=== PATIENT | male | born 1935 | race Caucasian/White ===

== ENCOUNTER 2024-12-16 12:13 | Emergency (ER) | payer MEDICARE, OTHER, SELFPAY ==
--- NOTE | ~2024-12-16 | CT_ITS ---
EXAMINATION: CT brain wo cathy, 12/16/2024 12:46 CDT HISTORY: syncope COMPARISON: No comparisons available. Technique: Axial images obtained of the brain without contrast. One or more of the following dose reduction techniques were used: automated exposure control, adjustment of the mA and/or kV according to patient size, use of iterative reconstruction technique. Findings: No acute infarct or parenchymal hemorrhage. No abnormal mass or mass effect. No midline shift. No extra-axial fluid collections. No hydrocephalus. Mastoid air cells unremarkable. Sinuses and orbits unremarkable. No acute fracture. No significant facial or scalp soft tissue swelling evident. No radiopaque foreign body is seen. Impression: 1.No acute intracranial abnormality. Reviewed, dictated and finalized at location A. Impression: 1.No acute intracranial abnormality.
--- NOTE | ~2024-12-16 | XR_ITS ---
Examination: XR chest 2V Clinical History: syncope Comparison: None Technique: PA and Lateral Findings: Cardiomediastinal silhouette normal size and configuration. Lungs clear. No acute bony abnormality. Osteopenia. IMPRESSION: 1. No acute cardiopulmonary findings. Reviewed, dictated and finalized at location R.
[2024-12-16 12:17] VITALS: TEMP 36.3
--- NOTE | 2024-12-16 12:23 | ECG_ITS ---
Test Date: 2024-12-16 12:32:39 Measurements Intervals [place] Rate: 50 P: 67 NE: 199 QRS: 34 QRSD: 91 T: 69 QT: 466 QTc: 426 Interpretive Statements SINUS BRADYCARDIA OTHERWISE NORMAL ECG No previous ECG available for comparison Electronically Signed On 12-17-2024 15:44:51 CDT by Ben Noel M.D.
[2024-12-16 12:44] LABS: Hematocrit 34.8 % (42.0-52.0); Hemoglobin 11.2 g/dL (14.0-18.0); Immature Granulocyte Percent A 0.6 % (0-0.5); Lymphocytes Absolute Auto 1.87 K/mm3 (0.9-3.2); Mean Corpuscular HGB Conc 32.2 g/dl (32-36); Mean Corpuscular Hemoglobin 31.5 pg (26-34); Mean Corpuscular Volume 97.8 fl (80-100); Nucleated Red Blood Cells Absolute Auto 0.000 K/mm3 (0.0-0.012); Nucleated Red Blood Cells Perc 0.0 % (0.0-0.2); Platelet Count Result 288 k/mm3 (150-375); Red Blood Count 3.56 M/mm3 (4.6-6.20); White Blood Count 7.0 K/mm3 (4.5-10.0)
[2024-12-16 13:07] LABS: Alanine Aminotransferase 19 U/L (6-50); Albumin Level 4.0 g/dL (3.5-5.1); Alkaline Phosphatase 100 U/L (38-126); Anion Gap 11 mmol/L (4-12); Aspartate Amino Transferase 28 U/L (17-59); Bilirubin,Total 1.1 mg/dL (0.2-1.3); Blood Urea Nitrogen 23 mg/dL (9-20); Calcium 9.4 mg/dL (8.4-10.2); Carbon Dioxide 22 mmol/L (22-30); Chloride 101 mmol/L (98-107); Estimated CRCL calculation 34 ml/min; Estimated Glomerular Filt Rate 49; Glucose 154 mg/dL (65-110); Potassium 4.5 mmol/L (3.4-5.0); Sodium 134 mmol/L (137-145); Total Protein 6.8 g/dL (6.3-8.2)
[2024-12-16 13:15] VITALS: BP 135/57
--- NOTE | 2024-12-16 13:15 | ED.SYNCOPE ---
HPI - Syncope General Chief Complaint: Syncope Stated Complaint: syncope Time Seen by Provider: 12/16/24 12:31 History of Present Illness HPI narrative: This is an 89-year-old male with history of CAD status post CABG, prostate cancer status post radiation many years ago who presents to the ED for syncope. Patient states that he had a bowel movement earlier today and was straining and in the straining he had a syncopal episode causing him to fall to the left side of the toilet and hit his head on the tile. He is unsure of how long he was out. Denies any other preceding symptoms. Denies any chest pain, shortness breath, abdominal pain, nausea, vomiting. Related Data Allergies Allergy/AdvReac Type Severity Reaction Status Date / Time No Known Allergies Allergy Verified 12/16/24 13:18 Review of Systems Review of Systems: Gen.: Denies fevers or chills Eyes: Denies eye pain or visual change ENT: Denies congestion Respiratory: Denies shortness of breath or cough CV: Denies chest pain or palpitations GI: Denies abdominal pain nausea, emesis or diarrhea denies burning, urgency, frequency or hematuria Musculoskeletal: Denies back pain or muscle pain Neuro: Denies numbness, tingling, weakness or focal weakness Skin: Denies rash Except as documented, all other systems reviewed and negative Exam Narrative: APPEARANCE: No acute distress, nontoxic, resting in bed EYES: EOMI HEENT: Normocephalic, atraumatic, OMM RESPIRATORY: No respiratory distress Clear to auscultation bilaterally with no rhonchi wheezing or rales. CARDIOVASCULAR: Regular rate and rhythm without murmurs rubs or gallops. ABDOMINAL: Soft, nontender, nondistended, no rebound or guarding MUSCULOSKELETAl: Moves all extremities. No clubbing, cyanosis or edema. NEURO: Awake and alert. Following commands, speech normal, no focal deficits. NIHSS 0 SKIN:: Warm, dry. No rashes lesions or abrasions PSYCHIATRIC: Normal affect/mood, Course Vital Signs Vital signs: Vital Signs Temperature 97.4 F L 12/16/24 12:17 Temperature 97.4 F L 12/16/24 12:17 Pulse Rate 75 12/16/24 13:20 Blood Pressure 110/59 L 12/16/24 13:20 MDM - Syncope MDM Narrative Medical decision making narrative: 89-year-old male who presented to the ED for syncopal episode. On initial evaluation, patient was in no acute distress, afebrile, hemodynamically stable. He had a nonfocal neuro exam. Heart and lungs clear. Abdomen soft and nontender. NIHSS is 0. History is most consistent with a vasovagal syncope in the setting of straining bowel movement. CT head showed no acute process. Labs are without significant abnormalities. EKG without concerning findings. Patient was able to ambulate through the department without any significant assistance. Patient will be given prescriptions for bowel regimen. He is advised follow-up with PCP in the next couple days for re-evaluation. Patient and family are agreeable to this plan. Given strict return precautions. Differential Diagnosis Differential diagnosis: Likely vasovagal syncope, complete atrioventricular block and dehydration Medical Records Attestation: I reviewed the patient's medical records. Lab Data Attestation: I reviewed the patient's lab results. 12/16/24 12:38 12/16/24 12:38 Labs: Lab Results 12/16/24 12/16/24 Range/Units 12:37 12:38 WBC 7.0 (4.5-10.0) K/mm3 RBC 3.56 L (4.6-6.20) M/mm3 Hgb 11.2 L (14.0-18.0) g/dL Hct 34.8 L (42.0-52.0) % MCV 97.8 (80-100) fl MCH 31.5 (26-34) pg MCHC 32.2 (32-36) g/dl RDW 12.7 (11.5-14.5) % Plt Count 288 (150-375) k/mm3 MPV 9.9 (7.4-10.4) fl Immature Gran % (Auto) 0.6 H (0-0.5) % Neut % (Auto) 62.4 (45.5-73.1) % Lymph % (Auto) 26.7 (18.3-44.2) % [place] % (Auto) 8.7 H (2.6-8.5) % Eos % (Auto) 1.0 (0-4.4) % Baso % (Auto) 0.6 (0.2-1.2) % Lymph # (Auto) 1.87 (0.9-3.2) K/mm3 [place] # (Auto) 0.6 (0.1-0.6) K/mm3 Eos # (Auto) 0.1 (0-0.3) K/mm3 Baso # (Auto) 0.0 (0.0-0.1) K/mm3 Abs Immat Gran (auto) 0.04 H (0.00-0.031) K/mm3 Absolute Neuts (auto) 4.4 (1.3-6.7) K/mm3 Absolute Nucleated RBC 0.000 (0.0-0.012) K/mm3 Nucleated RBC % 0.0 (0.0-0.2) % Sodium 134 L (137-145) mmol/L Potassium 4.5 (3.4-5.0) mmol/L Chloride 101 (98-107) mmol/L Carbon Dioxide 22 (22-30) mmol/L Anion Gap 11 (4-12) mmol/L BUN 23 H (9-20) mg/dL Creatinine 1.38 H (0.7-1.3) mg/dL Estim Creat Clear Calc 34 ml/min Estimated GFR 49 L (59 - ) Glucose 154 H (65-110) mg/dL POC Capillary Glucose 133 H (65-105) mg/dl Calcium 9.4 (8.4-10.2) mg/dL Total Bilirubin 1.1 (0.2-1.3) mg/dL AST 28 (17-59) U/L ALT 19 (6-50) U/L Alkaline Phosphatase 100 (38-126) U/L Total Protein 6.8 (6.3-8.2) g/dL Albumin 4.0 (3.5-5.1) g/dL Imaging Data Radiologist's impression: Impressions Head CT 12/16/24 13:18 Impression: 1.No acute intracranial abnormality. Chest X-Ray 12/16/24 13:19 IMPRESSION: 1. No acute cardiopulmonary findings. ECG Data EKG #1: Attestation: I personally reviewed and interpreted this ECG as follows: ECG completion date: 12/16/24 ECG completion time: 12:32 Interpretation: Sinus bradycardia rate of 50, normal axis, normal intervals, no acute ST or T-wave changes Discharge Plan Discharge Clinical Impression: Vasovagal syncope Patient Disposition: Home Condition: Stable Instructions: Antibiotic Form, Syncope (ED) Additional Instructions: Take a bowel regimen as prescribed. Follow-up with the PCP in the next few days for re-evaluation. Return to the ED for any new or worsening symptoms. Patient Language: Croatian Prescriptions: New bisacodyl [Dulcolax (bisacodyl)] 10 mg suppository 10 mg RECTAL DAILY PRN (Reason: constipation) Qty: 12 0RF sennosides-docusate sodium [Docuzen] 8.6-50 mg tablet 1 tab-cap PO HS Qty: 30 0RF polyethylene glycol 3350 [Miralax] 17 gram/dose powder 17 g PO DAILY Qty: 119 0RF Follow-up/Referrals: UNKNOWN,DOCTOR [Primary Care Provider]
[2024-12-16 13:17] VITALS: BP 131/60; PULSE 52
[2024-12-16 13:20] VITALS: BP 110/59; PULSE 75
--- OUTSIDE RECORDS SUMMARY | 2024-12-16 13:43 | XMS_ITS | Clinical Summary ---
Author Organization [facility] Address [address] [place] [address] Care Team Providers Care Logistics Manager Name Role Phone Kary Joiner MD Primary Care Provider + [phone] Rusty Saucedo OD Unavailable [phone] Nehemias Capellan MD Unavailable [phone] Sergio Lara MD Unavailable Didi Woo MD Unavailable [phone] Mk Moore DO Unavailable [phone] Kelsey Sun NP Unavailable Ambrocio Bledsoe MD Unavailable Hola Davenport MD Unavailable [phone] Roger Sibley Unavailable + [phone] Allergies No known active allergies Medications multivitamin capsuleIndications :Vitamin Deficiency Prevention Take 1 capsule by mouth every morning Active omega 1-wjt-cna-fish oil 1,000 mg (120 mg-180 mg) capsuleIndications :hypertriglyceride danielle Take 1 capsule (1,000 mg total) by mouth every morning Active B-COMPLEX WITH VITAMIN C ORALIndications:oropeza pplement Take 1 tablet by mouth every morning 12/15/19 20 Active calcium carbonate-vitamin D3 (CALTRATE 600 + D) 1500 mg (600 mg elemental) -400 units per tablet 10/08/19 21 Active vit C,C-Ep-arric-lutei n-zeaxan (PreserVision AREDS-2) 250-90-40-1 mg capsule 12/31/19 22 Active nitroglycerin (NITROSTAT) 0.[address] 1 tablet (0.4 mg total) under the tongue every 5 (five) minutes as needed for chest pain upt to 3x call 911 if pain persists 100 tablet 05/09/19 23 Active clopidogreL (PLAVIX) 75 mg tablet TAKE 1 TABLET DAILY 90 tablet 3 03/31/20 24 Active Synthroid 100 mcg tabletIndications: Acquired hypothyroidism TAKE 1 TABLET DAILY 90 tablet 3 10/21/19 25 Active citalopram (CeleXA) 20 mg tablet TAKE 1 TABLET DAILY 90 tablet 3 11/25/19 25 Active ramipriL (ALTACE) 5 mg capsule TAKE 1 CAPSULE DAILY 90 capsule 3 12/09/19 25 Active atorvastatin (LIPITOR) 20 mg tablet TAKE 1 TABLET DAILY 90 tablet 3 12/09/19 25 Active citalopram (CeleXA) 20 mg tablet TAKE 1 TABLET DAILY 90 tablet 3 11/29/19 24 025 Discontinued atorvastatin (LIPITOR) 20 mg tablet TAKE 1 TABLET DAILY 90 tablet 3 12/13/19 24 025 Discontinued ramipriL (ALTACE) 5 mg capsule TAKE 1 CAPSULE DAILY 90 capsule 3 12/13/19 24 025 Discontinued Active Problems Problem Noted Date Diagnosed Date Balance problem 03/21/2023 Assessment & Plan (03/21/2023 10:32 AM VENETIAN BLIND ASSEMBLER): New and worsening MRI brain recommended rule out cerebellar disease Memory changes 03/21/2023 Assessment & Plan (03/21/2023 10:34 AM VENETIAN BLIND ASSEMBLER): New Forgetting names but recovers Balance issues Rule out NPH Pain of toe of right foot 11/28/2022 Assessment & Plan (11/28/2022 2:24 PM CDT): Right plantar aspect of right great toe with erythema, edema, tednerness on palpation, right plantar aspect of right 1st MTA with significant erythema, edema, ttp light palpation, Decreased and painful ROM right great toe, Right great toe with generalized edema Possible gout vs inflammatory arthritis vs cannot r/o infectious process Unable to order labs at CC site. Recommend further work up : Uric acid, CRP, ESR, CMP. Discussed he should reach out to PCP's office and request this Ordered x-ray right foot Prednisone 30 mg taper Tylenol as needed for pain Keflex 500 mg BID x 7 days ER for worsening symptoms, fever PCP for persisting symptoms De Quervain's tenosynovitis, right 03/23/2022 Assessment & Plan (03/23/2022 3:42 PM VENETIAN BLIND ASSEMBLER): +Gaston test Use tylenol/ibuprofen as needed as directed on package for pain Follow up with PCP for further treatment, may eventually need steroid injections Xray to r/o fracture due to fall on outstretched hand 2 months ago and pt wants xray Encounter for follow-up surveillance of prostate cancer 03/10/2022 Supraspinatus tendon tear 01/23/2022 Labral tear of long head of right biceps tendon 01/23/2022 Partial tear of subscapulari s tendon, left, initial encounter 01/23/2022 H/O arteriovenous malformation (AVM) 01/16/2022 Overview (01/16/2022): Added automatically from request for surgery [id number] 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 Assessment & Plan (03/21/2023 7:54 AM VENETIAN BLIND ASSEMBLER): Flexible sigmoidoscopy December of 2021 Dr. Didi Woo, diagnosed with rectal angiodysplasia Monitor for blood in stools. Report if significant amounts of blood noted in stools. Monitor CBC and iron panel. 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 08/10/2021 Assessment & Plan (10/16/2024 5:16 PM CDT): Symptoms c/w with Left hand 1-3 fingers C6-7 distribution Annoying but living with it Using support pillows Make adjustments as needed Call if sx worsen for imaging and PT Has not yet had a C-spine x-ray Assessment & Plan (08/10/2021 9:43 AM CDT): C spine xray Avoid sleeping on the R side to avoid irritation of the nerve root Neck exercises May need MRI and PT Prostate cancer 01/13/2021 Cancer Staging:Clinical:Stage IIC(cT2a, cN0, cM0, PSA: 9.6, Grade Group: 4) - Signed by Norm Capps MD on 01/13/2021 Overview (10/16/2024): Non surgical treatment, had history of radiation therapy and ADT injections every six months Dr Jen Lara urologist (was) Dr Jefry Ríos Onc Clinical: Stage IIC (cT2a, cN0, cM0, PSA: 9.6, Grade Group: 4) - Signed by Norm Capps MD on 01/13/2021 Assessment & Plan (09/24/2023 9:56 AM CDT): Now in remission, completed the RTx and now on maintenance ADT injections q 6 mos Being monitored q 6 mos for 3 yrs Cont under on Rad Oncology Assessment & Plan (08/14/2022 11:12 AM CDT): Now in remission, completed the RTx and ADT Being monitored q 3 mos for 2 yrs, then q 6 mos for 3 yrs Cont under urology Abnormal MRI, pelvis 12/14/2020 Overview (12/14/2020): Added automatically from request for surgery [id number] History of basal cell carcinoma (BCC) of skin Overview (11/11/2020): Face Dr Hernandez Assessment & Plan (11/11/2020 6:47 PM CDT): Currently undergoing treatment to face Cont under Dr Hernandez Sunscreen, hat, long sleeve shirts, discussed Family history of prostate cancer in father 07/2020 Overview (11/10/2020): Father and brother Assessment & Plan (11/10/2020 3:24 PM CDT): At risk for Prostate cancer PSA screening Localized swelling on right hand 03/25/2020 Assessment & Plan (03/25/2020 10:54 AM VENETIAN BLIND ASSEMBLER): We will check a vein suplex of the RUE to rule out clot Arterial flow is good If not a DVT then possible superficial or other investigation needed such as CT chest/shoulder with potential lymphadenopathy being the cause of this swelling Medicare annual wellness visit, subsequent 10/22 Assessment & Plan (03/26/2024 10:27 AM VENETIAN BLIND ASSEMBLER): Reviewed previous labs and diagnostic test results. Chronic medical problems evaluated and management plans discussed with the patient. Prescription medications, supplements, vitamins and immunizations reviewed. Wear seatbelts. Use sunscreen. Discussed healthy diet and disease prevention. Recommend moving towards a plant based diet. Discussed importance of scheduling recommended screening tests. Discussed importance of regular physical examinations for health maintenance. Assessment & Plan (02/08/2022 10:52 AM CDT): Reviewed previous labs and diagnostic test results. Chronic medical problems evaluated and management plans discussed with the patient. Prescription medications, supplements, vitamins and immunizations reviewed. Wear seatbelts. Use sunscreen. Discussed healthy diet and disease prevention. Recommend moving towards a plant based diet. Discussed importance of scheduling recommended screening tests. Discussed importance of regular physical examinations for health maintenance. Discussed importance of a living will, advanced directives and establishing or updating healthcare power of real estate attorney document and providing our office with a copy. Assessment & Plan (11/10/2020 3:17 PM CDT): Reviewed previous labs and diagnostic test results. Chronic medical problems evaluated and management plans discussed with the patient. Prescription medications, supplements, vitamins and immunizations reviewed. Wear seatbelts. Use sunscreen. Discussed healthy diet and disease prevention. Recommend moving towards a plant based diet. Discussed importance of scheduling recommended screening tests. Discussed importance of regular physical examinations for health maintenance. Discussed importance of a living will, advanced directives and establishing or updating healthcare power of real estate attorney document and providing our office with a copy. Assessment & Plan (10/23/2019 8:52 AM CDT): Here for wellness exam Patient has procedure coming up for eyes with [employer] This is low risk procedure in a low risk patient for cardiac event to occur and the benefits outweigh the risk and patient is recommended to move forward with the procedure Coronary artery disease invo lving [place] coronary artery of [place] heart 10/27/2018 Overview (11/10/2020): Open heart [place] [address] Pearl Assessment & Plan (11/10/2020 3:33 PM CDT): Stable Cont on plavix and statin therapy Risk for falls 07/23/2018 Overview (02/08/2022): 11/2021 Fell coming out of a pizza parlor, large step down at the exit, strained r wrist and scraped r knee, no major ijuries Assessment & Plan (03/26/2024 10:26 AM VENETIAN BLIND ASSEMBLER): Patient at risk for falls due to age and co morbidities. Fall prevention discussed c patient in detail. Exercises for balance and coordination, keep LE muslces toned and strong. Assessment & Plan (02/08/2022 10:53 AM CDT): Patient at risk for falls due to age and co morbidities. Fall prevention discussed c patient in detail. Exercises for balance and coordination, keep LE muslces toned and strong. Assessment & Plan (11/10/2020 3:27 PM CDT): Lives in a single level home now. Patient at risk for falls due to age and co morbidities. Fall prevention discussed c patient in detail. Exercises for balance and coordination, keep LE muslces toned and strong. Assessment & Plan (07/23/2018 3:55 PM CDT): Patient at risk for falls due to age and co morbidities. Fall prevention discussed c patient in detail. Exercises for balance and coordination, keep LE muslces toned and strong. Consider yoga or kennedy chi for exercising. BMI 26.0-26.9,adult 07/23/2018 Assessment & Plan (11/10/2020 3:33 PM CDT): Normal weight AAA (abdominal aortic aneurysm) without rupture 03/15/2017 Overview (07/23/2018): Dr Ambrocio Bledsoe, 3.2 cm, serial Ultrasounds Assessment & Plan (09/24/2023 10:16 AM CDT): Cont monitoring closely under dr Bledsoe. Is being managed by US anually Cont keeping BP on Low and well controlled. Assessment & Plan (11/10/2020 3:23 PM CDT): Cont monitoring closely under dr Bledsoe. Cont keeping BP on Low and well controlled. Assessment & Plan (07/23/2018 3:48 PM CDT): Cont monitoring closely under dr Bledsoe. Cont keeping BP on Low and well controlled. 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 03/15/2017 Overview (10/16/2024): on citalopram and tolerating, stable, counsellor was [facility] open heart surgery Tried to wean off a couple times and needs to continue to take >>OVERVIEW FOR MAJOR DEPRESSIVE DISORDER, SINGLE EPISODE, MILD WRITTEN ON 03/26/2024 10:35 AM BY KARY JOINER MD Since had NV, taking celexa therapy, on maintenance Assessment & Plan (10/16/2024 5:17 PM CDT): >>ASSESSMENT AND PLAN FOR MAJOR DEPRESSIVE DISORDER, SINGLE EPISODE, MILD WRITTEN ON 09/24/2023 10:15 AM BY KARY JOINER MD Has had mild depression after open heart surgery Doing well on Rx citalopram Has tried to wean off and depression recurrs stable Assessment & Plan (10/16/2024 5:17 PM CDT): on Rx citalopram and tolerating, stable, counsellor was [facility] open heart surgery Tried to wean off a couple times and feels he needs to continue to take Stable Assessment & Plan (11/10/2020 3:29 PM CDT): on citalopram and tolerating, stable, counsellor was [facility] open heart surgery Tried to wean off a couple times and needs to continue to take Assessment & Plan (07/23/2018 3:42 PM CDT): Controlled on citalopram therapy 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 Avoid sugar in diet. Stay active. At risk for diabetes discussed. Monitor A1c Assessment & Plan (03/21/2023 7:52 AM VENETIAN BLIND ASSEMBLER): Mild elevations in blood sugar. Avoid sugar in diet. Stay active. At risk for diabetes discussed. Monitor A1c Assessment & Plan (08/14/2022 11:08 AM CDT): Follow low carbohydrate high-protein diet. Avoid eating sugars. Patient should read labels and make sure there are no ingredients that contain added sugar, or fructose, sucrose or anything ends in OSE. Exercise regularly, limit food portions. Follow proper serving sizes. Work on add'l weight loss. Will Monitor a1c on a 3-6mos basis. Assessment & Plan (08/10/2021 9:25 AM CDT): a1c is 6.2% Remains at risk for DM Ff low sugar diet Assessment & Plan (11/10/2020 3:23 PM CDT): Follow low carbohydrate high-protein diet. Avoid eating sugars. Patient should read labels and make sure there are no ingredients that contain added sugar, or fructose, sucrose or anything ends in OSE. Exercise regularly, limit food portions. Follow proper serving sizes. Acquired hypothyroidism 07/26/2015 Assessment & Plan (10/16/2024 4:52 PM CDT): Cont current rx medication dose is euthyroid Report if has frequent palpitations, irreg heart beat or sudden changes in weight. Report if develops problem swallowing or hoarseness Assessment & Plan (09/24/2023 9:57 AM CDT): Cont current rx medication dose is euthyroid Report if has frequent palpitations, irreg heart beat or sudden changes in weight. Report if develops problem swallowing or hoarseness Assessment & Plan (03/21/2023 7:52 AM VENETIAN BLIND ASSEMBLER): Cont current rx medication dose is euthyroid Report if has frequent palpitations, irreg heart beat or sudden changes in weight. Report if develops problem swallowing or hoarseness Assessment & Plan (08/14/2022 11:08 AM CDT): Cont current rx medication dose is euthyroid Report if has frequent palpitations, irreg heart beat or sudden changes in weight. Report if develops problem swallowing or hoarseness Assessment & Plan (08/10/2021 9:24 AM CDT): TSH is in range cont same dose Report if has frequent palpitations, irreg heart beat or sudden changes in weight. Report if develops problem swallowing or hoarseness Assessment & Plan (11/10/2020 3:30 PM CDT): Cont current dose is euthyroid Report if has frequent palpitations, irreg heart beat or sudden changes in weight. Report if develops problem swallowing or hoarseness Assessment & Plan (10/23/2019 9:18 AM CDT): Will recheck TSH in next lab, order placed Assessment & Plan (07/23/2018 3:41 PM CDT): Cont current dose is euthyroid Report if has frequent palpitations, irreg heart beat or sudden changes in weight. Report if develops problem swallowing or hoarseness Carotid atherosclerosis 07/22/2015 Overview (11/10/2020): Dr Bledsoe, serial carotid US, Left Assessment & Plan (11/11/2020 6:49 PM CDT): Stable as of last US, cont to monitor regularly. Keep the BP normal and ff low chol diet. Cont plavix therapy. Dr Bledsoe managing, serial carotid US, Left Assessment & Plan (07/23/2018 3:52 PM CDT): Stable as of last US, cont to monitor regularly. Keep the BP normal and ff low chol diet. Cont plavix therapy. Essential hypertension 11/21/2010 Overview (07/23/2018): Also seeing dr Benjamin Brown client partner in [place] when estrada there. Sees Dr Bledsoe at [facility]. Assessment & Plan (10/16/2024 4:51 PM CDT): Cont low sodium diet BP controlled Managed by Cardio Dr Bledsoe stable Assessment & Plan (09/24/2023 9:57 AM CDT): Cont low sodium diet BP controlled Managed by Cardio Dr Ladi garzon Assessment & Plan (02/08/2022 11:16 AM CDT): Cont low sodium diet BP controlled Managed by Cardio Dr Bledsoe Assessment & Plan (08/10/2021 9:23 AM CDT): Stable Managed by cardio Assessment & Plan (11/11/2020 6:49 PM CDT): Cont under care of cardio Dr Ladi Garzon. Follow low sodium DASH Diet. Exercise regularly for CV health Maintain normal BMI/Weight. Take medications as prescribed. Report if having problems with the medication or if develops Chest pains. Monitor BP occly and record. Report if BP consistently over 160/90 or under 90/60 and dizzy and LH. Assessment & Plan (10/23/2019 9:18 AM CDT): Continue blood pressure medications Assessment & Plan (07/23/2018 3:41 PM CDT): Follow low sodium DASH Diet. Exercise regularly for CV health and weight loss. Achieve or Maintain normal BMI/Weight. Take medications as prescribed. Report if having porblems with the medication or if develops Chest pains. Monitor BP occly and record. Report if BP consistently over 160/90 or under 90/60 and dizzy and LH. BP is controlled and stable. Arteriosclerotic vascular disease 08/22/2010 Hyperlipidemia 08/22/2010 Overview (07/23/2018): Dr Bledsoe managing atorvastatin Assessment & Plan (10/16/2024 4:52 PM CDT): Stable, managed by Cardio Dr Ladi Garzon on rx meds Assessment & Plan (09/24/2023 9:57 AM CDT): Stable, managed by Cardio Duran on rx meds Assessment & Plan (08/10/2021 9:23 AM CDT): Stable, managed by Cardio Assessment & Plan (11/11/2020 6:48 PM CDT): Continue statin Under care of cardio Dr Rivera Low chol diet discussed Assessment & Plan (10/23/2019 9:18 AM CDT): Continue statin Resolved Problems Problem Noted Date Diagnosed Date Resolved Date Low hemoglobin 09/24/2023 10/16/2024 Assessment & Plan (09/24/2023 10:12 AM CDT): Might be low iron in diet, been eating salad greens not much spinach With hx of prostate ca will check UA UA, iron panel, b12 May need colonoscopy and EGD Hx of colon polyps Urgency of urination 09/24/2023 025 Assessment & Plan (09/24/2023 10:14 AM CDT): Same with BM, when has to go has to get to the bathroom quickly Might be from week pelvic floor muscles Would hold off unless it worsens Cough 07/28/2023 09/24/2023 Assessment & Plan (07/28/2023 10:07 AM CDT): Rapid covid, flu, rsv negative Symptom duration 2 weeks Likely ongoing post viral/bronchitis Medrol dose Augmentin due to LOS Tessalon as cough suppressant prn Tylenol for aches, pains. Take per package directions Antihistamines like Claritin or Zyrtec and Flonase nasal spray, as needed for drainage for 7-10 days. Take per package directions Cool mist humidifier, nasal saline spray , 2 sprays each nostril 3-4 times a day for 7-10 days for congestion Delsym (cough suppressant) and Mucinex (cough expectorant) as needed for coughing. 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 Reports in his brother and father. -KANU revealed enlarge prostate. No nodules noted. -We discussed the following options to further evaluate elevated PSA: 1) We can recheck your PSA level in a couple of months see if this is a true PSA elevation. 2) Get a prostate MRI. This will detect if there is any suspicious lesion or mass in the prostate. If a lesion is detected, then you would be taken to the OR to get the prostate biopsy and using the MRI, we would target tissue samples from that lesion. 3) Schedule a prostate biopsy to determine if it is prostate cancer. PLAN: -Patient would like to have MRI of prostate performed. Will discuss prostate biopsy based on results. Spinal stenosis of lumbar region 04/16/2020 07/26/2020 Overview (04/16/2020): Added automatically from request for surgery [id number] Breast mass, right 02/23/2020 Assessment & Plan (02/23/2020 1:58 PM VENETIAN BLIND ASSEMBLER): R breast Ultrasound Cut down on caffeine and chocolates Might need referral to surgery Spinal stenosis at L4-L5 level 09/15/2019 11/10/2020 Overview (07/26/2020): 07/21/2020 - L4/5 POSTERIOR SPINAL DECOPRESSION, Dr Jen Anderson Assessment & Plan (11/10/2020 3:26 PM CDT): Surgically resolved, successful surgery. 07/21/2020 - L4/5 POSTERIOR SPINAL DECOPRESSION, Dr Jen Anderson Assessment & Plan (10/23/2019 9:19 AM CDT): Given mobic to be taken daily prn for pain, instructed not to take medication more than 5 days in a row because of kidney function and he is on plavix Assessment & Plan (09/15/2019 9:34 AM CDT): Has contacted Dr. Sergio Anderson at [facility] regarding this-cannot get him until 01/05/2020-was told this back in July-wants his PCP to know just in case if she has suggestion for perhaps a different NSY he could get in sooner to see. Will attempt topical lidocaine patches and flexeril while pain management in arranged. Will let PCP know of this visit Carpal tunnel syndrome of right wrist 11/22/2017 11/11/2020 Overview (11/22/2017): Added automatically from request for surgery [id number] Primary osteoarthritis of right shoulder 01/23/2017 11/10/2020 Primary osteoarthritis of right knee 07/18/2016 11/10/2020 Solitary pulmonary nodule 07/22/2015 Overview (07/23/2018): Pulmonary monitored it for 2-3 yrs was stable unchanged, benign activity Lesion of left lateral popliteal nerve 07/22/2015 11/10/2020 History of coronary artery bypass graft 07/22/2015 07/23/2018 Encounters Date Type Department Care Team Description 12/13/2024 9:[address] [facility] [address] [place] [address] Prostate cancer (HCC) 10/17/2024 9:[address] [facility] [address] [place] [address] Essential hypertension; Pure hypercholesterolemia ; Acquired hypothyroidism; Abnormal glucose 10/17/2024 Results Follow-Up [facility] [address] [facility] [address] [place] [phone] Kary Joiner MD Hepatitis B Surface Antigen Blood, Hemoglobin A1c, TSH, Additional followed-up results: 5 10/16/2024 4:00 PM CDT Office Visit [facility] [address] [phone] Kary Joiner MD Essential hypertension (Primary Dx); Pure hypercholesterolemia ; Acquired hypothyroidism; Abnormal glucose; 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 [address] [place] [address] Iron deficiency anemia secondary to inadequate dietary iron intake; Abnormal glucose from Last 3 Months Immunizations Immunization Administration Dates Next Due COVID-19 mRNA (GoSquared) 0.3 m L (30 mcg) vaccine (12 years and up) 02/04/2023 Influenza, Quad, Adjuvantate d, Intramuscular 12/20/2021,01/03/2020,01/03/2020 Influenza, Quadrivalent, Hig h Dose, Preservative Free, Intrr 02/04/2023 Influenza, Split 02/24/2005 Influenza, Trivalent, Adjuva nted, Intramuscular 01/11/2018,01/11/2018 Influenza, Trivalent, High D ose, Split, Preservative Free, Intramuscular 02/23/2024,04/19/2019,04/19/2019,01/24 Influenza, Trivalent, Preser vative Free, Intramuscular 01/03/2014,01/04/2013 Influenza, Unspecified 01/13/2021,04/19/2019 Influenza, Whole 03/01/2002 Pfizer SARS-CoV-2 Monovalent Vaccination (12+ Yrs) PURPLE 01/19/2021,06/26/2020,06/05/2020 Pfizer Sars-Cov-2 Bivalent V accination (12+ YRS) 12/20/2021 Pneumococcal Conjugate PCV 13 07/26/2015 Pneumococcal Conjugate Pcv20 08/14/2022 Pneumococcal Polysaccharide PPV23 02/07/2011 RSV, Bivalent, Protein Subun it Rsvpref, Diluent (Abrysvo) 02/04/2023 TD Preservative Free 10/06/2006 Tdap 09/07/2006 ZOSTER LIVE 01/31/2008,04/09/2007 ZOSTER Recombinant 03/19/2018,03/19/2018, 018 Surgical History Surgery Date Site/Laterality Comments CHOLECYSTECTOMY CATARACT EXTRACTION, BILATERAL POSTERIOR LAMINECTOMY / DECOMPRESSION LUMBAR SPINE 07/21/2020 Dr Jen Anderson CORONARY ARTERY BYPASS GRAFT 04/09/1998 - 04/08/1999 MOHS SURGERY Right CARPAL TUNNEL RELEASE 04/09/2017 - 04/08/2018 Right BASAL CELL CARCINOMA EXCISION Medical History Medical History Date Comments Occlusion and stenosis of unspecified carotid artery Carotid atherosclerosis - ( Added by TW Conv) Hypertension History of transfusion Sciatica Peripheral neuropathy Leg pain, bilateral Coronary artery disease Motion sickness Solitary pulmonary nodule 07/22/2015 History of colon polyps 11/22/2017 Prostate cancer (HCC) 2020 completed radiation 04/2021 Kidney stone Torn rotator cuff right 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 Prostate can cer radiation therapy April 2021 Colonoscopy November 25, 2021 Family History Medical History Relation Name Comments Heart disease Brother Arnaldo King Prostate cancer Brother Arnaldo King Colon cancer Father Ac King Prostate cancer Father Ac King Atrial fibrillation Mother Natacha King Heart disease Mother Natacha King Stroke Mother Natacha King Bone cancer Paternal Grandmother Kandice King Cancer Paternal Grandmother Kandice King Obesity Sister 2 Leticia Fernando Relation Name Status Comments Brother Arnaldo King Alive Father Ac King Mother Natacha King Paternal Grandmother Kandice King Sister 1 Alive Sister 2 Leticia Fernando Social History Tobacco Use Types Packs/Day Years Used Date Smoking Tobacco: Former Cigarettes Q uit: 1960 Smokeless Tobacco: Never Tobacco Cessation:Counseling Given: Not Answered Alcohol Use Standard Drinks/Week Comments Yes 4 (1 standard drink = 0.6 oz pur e alcohol) AUDIT-C Answer Date Recorded Q1: How often do you have a drink containing alc ohol? 2-4 times a month 03/21/2023 Q2: How many drinks containi ng alcohol do you have on a typical day when you are drinking? 1 or 2 03/21/2023 Q3: How often do you have si x or more drinks on one occasion? 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 Not on file Not on file N ot on file Obstetrics History Last Filed Vital Signs Vital Sign Reading Time Taken Comments Blood Pressure 106/58 10/16/2024 4:02 PM CDT Pulse 62 10/16/2024 4:02 PM CDT Temperature 36.3 C (97.4 F) 10/16/2024 4:02 PM CDT Respiratory Rate 20 08/11/2024 2:43 PM CDT Oxygen Saturation 96% 10/16/2024 4:02 PM CDT Inhaled Oxygen Concentration - - Weight 81.5 kg (179 lb 9.6 oz) 10/16/2024 4:02 P M CDT Height 177.8 cm (5' 10) 10/16/2024 4:02 PM CDT Body Mass Index 25.77 10/16/2024 4:02 PM CDT Plan of Treatment Health Maintenance Due Date Last Done Comments Hepatitis B Screening 1953 Covid-19 Vaccine (2023-2 5 season) 2024 02/23/2024, 02/04/2023, 12/20/2021, Additional history exists Influenza Vaccine (#1) 2024 , 02/04/2023, 12/20/2021, Additional history exists Fall Risk Assessment 03/26/2025 03/26/2024, 03/21/2023, 02/08/2022, Additional history exists Well Visit 65+ 03/26/2025 03/26/2024, 03/09, 02/08/2022, Additional history exists Depression Screening 10/16/2025 10/16/2024, 03/26/2024, 09/24/2023, Additional history exists DTaP/Tdap/Td Vaccine Discontinued 10/06/2006, 09/08/19 07 Zoster Vaccine Completed 03/19/2018, 03/09, 12/24/2017, Additional history exists Pneumococcal vaccine 65+ Completed 023, 07/26/2015, 02/07/2011 Goals Goal Patient Goal Type Associated Problems Recent Progress Patient-Stated? Author CCM Chronic Pain Care Plan Chronic Care Management Worsening( 10:55 AM [employer]) No Pily Hardy, RN Note: Problem: Chronic Pain Goals: 1. Minimize further functional decline 2. Maximize quality of life 3. Control pain Strategies: - Activity/exercise program recommendation - Conservative stepwise pain medicine strategy with multi-disciplinary approach - Recommend healthy lifestyle strategies and compensatory methods as needed Procedures Procedure Name Priority Date/Time Associated Diagnosis Comments PSA DIAGNOSTIC Routine 12/13/2024 9:08 AM CDT Prostate cancer (HCC) TOTAL TESTOSTERONE Routine 12/13/2024 9: 08 AM CDT Prostate cancer (HCC) EGFR Routine 10/17/2024 9:17 AM CDT Essential hypertension Pure hypercholesterolem ia Acquired hypothyroidism Abnormal glucose DIFFERENTIAL AUTO Routine 10/17/2024 9:1 7 AM CDT Essential hypertension Pure hypercholesterolem ia Acquired hypothyroidism Abnormal glucose CBC WITH AUTO DIFFERENTIAL Routine 10/17/2024 9:17 AM CDT Essential hypertension Pure hypercholesterolem ia Acquired hypothyroidism Abnormal glucose COMPREHENSIVE METABOLIC PANEL Routine 10/17/2024 9:17 AM CDT Essential hypertension Pure hypercholesterolem ia Acquired hypothyroidism Abnormal glucose LIPID PANEL Routine 10/17/2024 9:17 AM CDT Essential hypertension Pure hypercholesterolem ia Acquired hypothyroidism Abnormal glucose TSH Routine 10/17/2024 9:17 AM CDT Essential hypertension Pure hypercholesterolem ia Acquired hypothyroidism Abnormal glucose HEMOGLOBIN A1C Routine 10/17/2024 9:17 AM CDT Essential hypertension Pure hypercholesterolem ia Acquired hypothyroidism Abnormal glucose HEPATITIS B SURFACE ANTIGEN Routine 10/17/2024 9:17 AM CDT Essential hypertension Pure hypercholesterolem ia Acquired hypothyroidism Abnormal glucose EGFR Routine 09/25/2024 1:20 PM CDT Iron deficiency anemia secondary to inadequate dietary iron intake COMPREHENSIVE METABOLIC PANEL Routine 09/25/2024 1:20 PM CDT Iron deficiency anemia secondary to inadequate dietary iron intake HEMOGLOBIN A1C Routine 09/25/2024 1:20 PM CDT Abnormal glucose IRON PROFILE W/ IBC Routine 09/25/2024 1 :20 PM CDT Iron deficiency anemia secondary to inadequate dietary iron intake FERRITIN Routine 09/25/2024 1:20 PM CDT Iron deficiency anemia secondary to inadequate dietary iron intake from Last 3 Months Results * (ABNORMAL) Total testosterone (12/13/2024 9:08 AM CDT) Testosterone <3.00(L) 193.00 - 740.00 ng/dL Blood 12/13/2024 9:08 AM CDT 12/13/2024 10:58 AM CDT Kelsey Sun MUSIC EXECUTIVE LAB BLOOD ORDERABLES F inal Result [facility] [address] [facility] Department [place] [address] * PSA diagnostic (12/13/2024 9:08 AM CDT) PSA-Total <0.10 <=6.20 ng/mL Comment: Interpretive Data AGE SEX REFERENCE INTERVAL 0 minutes-150 years Female None 0 minutes-49 years Male None 50-59 years Male 0-3.90 60-69 years Male 0-5.40 70-79 years Male 0-6.20 80-150 years Male 0-6.20 The Lyn PSA Total assay procedure was used. Results from different manufacturers or methods may not be comparable. Serial testing should be performed using the same method. Current interpretive data last revised 21. Testing performed by: [address] [id number] Blood 12/13/2024 9:08 AM CDT 12/13/2024 9:12 AM CDT us Kelsey Sun NP LAB BLOOD ORDERABLES F inal Result [facility] [address] [facility] Department [place] [address] * eGFR (10/17/2024 9:17 AM CDT) eGFR 64 >=60 mL/min/1. 73 m2 Comment: Interpretive Data Reference Interval Normal >/= 90 mL/min/1.73m2 Mildly decreased* 60 - 89 mL/min/1.73m2 Mildly to moderately decreased 45 - 59 mL/min/1.73m2 Moderately to severely decreased 30 - 44 mL/min/1.73m2 Severely decreased 15 - 29 mL/min/1.73m2 Kidney Failure < 15 mL/min/1.73m2 *Relative to young adult level Estimated glomerular filtration rate is determined by the 2020 CKD-EPI equation recommended by the National Kidney Foundation (A Unifying Approach to GFR Estimation: Recommendations of the NKF-ASK Task Force on Reassessing the Inclusion of Race in Diagnosing Kidney Disease, JASN 2020). The CKD-EPI equation should not be used for patients with unstable renal function and has not been validated in children and those over 70. Current interpretive data was last reviewed 2021. Testing performed by: [address] [address] Blood 10/17/2024 9:17 AM CDT 10/17/2024 10:03 AM CDT us Kary Joiner MD LAB BLOOD ORDERABLES Final R esult [facility] [address] [facility] Department [place] [address] * Differential, auto (10/17/2024 9:17 AM CDT) Neutrophil abs 3.76 1.50 - 6.50 K/cumm Comment:Testing performed by : [address] [address] Imm gran abs 0.02 0.00 - 0.10 K/cumm [facility] Comment:Testing performed by : [address] [address] Lymphocyte abs 2.10 0.80 - 3.30 K/cumm [place] Comment:Testing performed by : [address] [address] Monocyte abs 0.74 0.20 - 0.80 K/cumm [facility] Comment:Testing performed by : [address] [address] Eosinophil abs 0.19 0.00 - 0.50 K/cumm [facility] Comment:Testing performed by : [address] [address] Basophil abs 0.05 0.00 - 0.10 K/cumm [facility] Comment:Testing performed by : [address] [address] Neutrophil pct 54.8 % [facility] Comment: Interpretive Data Percent cell count reference ranges are not reported, since discordance with absolute values may lead to misinterpretation of CBC data. Current Interpretive Data was last revised on 2017. Testing performed by: [address] [address] Imm gran pct 0.3 % [place] Comment: Interpretive Data Percent cell count reference ranges are not reported, since discordance with absolute values may lead to misinterpretation of CBC data. Current Interpretive Data was last revised on 2017. Testing performed by: [address] [address] Lymphocyte pct 30.6 % [place] Comment: Interpretive Data Percent cell count reference ranges are not reported, since discordance with absolute values may lead to misinterpretation of CBC data. Current Interpretive Data was last revised on 2017. Testing performed by: [address] [address] Monocyte pct 10.8 % [place] Comment: Interpretive Data Percent cell count reference ranges are not reported, since discordance with absolute values may lead to misinterpretation of CBC data. Current Interpretive Data was last revised on 2017. Testing performed by: [address] [address] Eosinophil pct 2.8 % [place] Comment: Interpretive Data Percent cell count reference ranges are not reported, since discordance with absolute values may lead to misinterpretation of CBC data. Current Interpretive Data was last revised on 2017. Testing performed by: [address] [address] Basophil pct 0.7 % [facility] Comment: Interpretive Data Percent cell count reference ranges are not reported, since discordance with absolute values may lead to misinterpretation of CBC data. Current Interpretive Data was last revised on 2017. Testing performed by: [address] [address] Blood 10/17/2024 9:17 AM CDT 10/17/2024 10:04 AM CDT us Kary Joiner MD LAB BLOOD ORDERABLES Final R esult [facility] [address] [facility] Department [place] [address] * (ABNORMAL) CBC with auto differential (10/17/2024 9:17 AM CDT) WBC 6.86 3.80 - 9.90 K/cumm Comment:Testing performed by : [address] [address] Hgb 11.7(L) 13.0 - 17.5 g/dL [facility] Comment:Testing performed by : [address] [place] [address] Hct 35.7(L) 38.9 - 50.3 % [facility] Comment:Testing performed by : [address], [address] Plt 313 150 - 400 K/cumm [facility] Comment:Testing performed by : [address], [address] MPV 10.4 9.1 - 12.3 fL [place] Comment:Testing performed by : [address], [address] RBC 3.69(L) 4.30 - 5.80 M/cumm [facility] Comment:Testing performed by : [address], [address] MCV 96.7(H) 81.3 - 96.4 fL [place] Comment:Testing performed by : [address], [address] MCH 31.7 27.1 - 33.3 pg [facility] Comment:Testing performed by : [address], [address] MCHC 32.8 32.3 - 35.7 g/dL [facility] Comment:Testing performed by : [address], [address] RDW CV 13.6 11.1 - 14.9 % [place] Comment:Testing performed by : [address], [address] RDW SD 48.4(H) 35.7 - 48.1 fL [facility] Comment:Testing performed by : [address], [address] NRBC abs 0.00 0.00 - 0.01 K/cumm [facility] Comment:Testing performed by : [address], [address] Blood 10/17/2024 9:17 AM CDT 10/17/2024 10:04 AM CDT us Kary Joiner MD LAB BLOOD ORDERABLES Final R esult Performing Organization Address [facility]/ZIP Co de Phone Number [place] [address] [address] * Hepatitis B Surface Antigen Blood (10/17/2024 9:17 AM CDT) HepBsAg Nonreactive Nonreactive Blood 10/17/2024 9:17 AM CDT 10/17/2024 12:31 PM CDT us Kary Joiner MD LAB MICROBIOLOGY - GENERAL O RDERABLES Final Result Performing Organization Address [facility] Co de Phone Number [place] [address] [address] * TSH (10/17/2024 9:17 AM CDT) Pathologist [facility] Thyroid Stimulating Hormone 1.01 0.30 - 4.20 mcIUnit/mL Comment:Testing performed by : [facility], [address] [place] [address]., [address] Blood 10/17/2024 9:17 AM CDT 10/17/2024 10:03 AM CDT Kary Joiner MD LAB BLOOD ORDERABLES Final R esult Performing Organization Address [facility] Co de Phone Number LUIS[address] [address] * (ABNORMAL) Hemoglobin A1c (10/17/2024 9:17 AM CDT) Hgb A1C 6.0(H) 4.0 - 5.6 % Comment:Testing performed by : [address] [address] Estimated Average Glucose 126 mg/dL [facility] Comment: The ADA recommends reporting an estimated Average Glucose (eAG) with all Hemoglobin A1c results using the equation derived from a study of 507 normal and diabetic adults. Minority populations were underrepresented and children were not included. (Diabetes Care 31:0002-2143, 2008). The eAG is not equivalent to a fasting glucose. Testing performed by: [address] [address] Blood 10/17/2024 9:17 AM CDT 10/17/2024 10:03 AM CDT us Kary Joiner MD LAB BLOOD ORDERABLES Final R esult [facility] [address] [facility] Department [place] [address] * Lipid panel (10/17/2024 9:17 AM CDT) Cholesterol 131 30 - 199 mg/dL Comment: Interpretive Data Ages < or = 19 years Acceptable: <170 mg/dL Borderline high: 170-199 mg/dL High: >or= 200 mg/dL Ages > or = 20 years Desirable: <200 mg/dL Borderline high: 200-239 mg/dL High: >or= 240 mg/dL Literature References: 1. Expert Panel on Integrated Guidelines for Cardiovascular Health and Risk Reduction in Children and Adolescents. Pediatrics 2011;128:S213 2. NCEP Expert Panel. Circulation 2004;110:227 Current Interpretive Data was last revised on 2017. Testing performed by: [address] [address] Triglycerides 112 <=149 mg/dL [facility] Comment: Interpretive Data Ages < or = 9 years Acceptable: <75 mg/dL Borderline high: 75-99 mg/dL High: >or= 100 mg/dL Ages 10 to 20 years Acceptable: <90 mg/dL Borderline high: 90-129 mg/dL High: >or= 130 mg/dL Ages > or = 20 years Desirable: <150 mg/dL Borderline high: 150-199 mg/dL High: 200-499 mg/dL Very high: >or= 499 mg/dL Literature References: 1. Expert Panel on Integrated Guidelines for Cardiovascular Health and Risk Reduction in Children and Adolescents. Pediatrics 2011;128:S213 2. NCEP Expert Panel. Circulation 2004;110:227 Current Interpretive Data was last revised on 2017. Testing performed by: [address] [address] HDL 47 >=40 mg/dL [facility] Comment: Interpretive Data Ages < or = 19 years Acceptable: >45 mg/dL Borderline low: 40-45 mg/dL Low: <40 mg/dL Ages > or = 20 years Desirable: >or= 60 mg/dL Low: <40 mg/dL Literature References: 1. Expert Panel on Integrated Guidelines for Cardiovascular Health and Risk Reduction in Children and Adolescents. Pediatrics 2011;128:S213 2. NCEP Expert Panel. Circulation 2004;110:227 Current Interpretive Data was last revised on 2017. Testing performed by: [facility], [address] [place] [address]., [address] LDL, calculated 64 <=129 mg/dL [facility]OLAND Comment: Interpretive Data Ages < or = 19 years Acceptable: <110 mg/dL Borderline high: 110-129 mg/dL High: >or= 130 mg/dL Ages > or = 20 years Optimal: <100 mg/dL Near optimal: 100-129 mg/dL Borderline high: 130-159 mg/dL High: >160 mg/dL Calculated using the Carlos LDL-C estimating equation. This equation was implemented on 2023. Prior to this date LDL-C was estimated using the Friedewald equation. Literature References: 1. Expert Panel on Integrated Guidelines for Cardiovascular Health and Risk Reduction in Children and Adolescents. Pediatrics 2011;128:S213 2. NCEP Expert Panel. Circulation 2004;110:227 3. Carlos Brown et al. SAMMIE Cardiol. 2019August 07;5(5):540-548. doi: 10.1001/[email or web address] Current Interpretive Data was last revised on 2023. Testing performed by: [facility], [address] [place] [address]., [address] Non-HDL Cholesterol 84 mg/dL [facility] Comment: Interpretive Data Ages < or = 19 years Acceptable: <120 mg/dL Borderline high: 120-144 mg/dL High: >145 mg/dL Ages > or = 20 years When triglycerides are >200 mg/dL, Non-HDL cholesterol is a secondary target of therapy with treatment goals that are 30 mg/dL greater than the LDL cholesterol target. Literature References: 1. Expert Panel on Integrated Guidelines for Cardiovascular Health and Risk Reduction in Children and Adolescents. Pediatrics 2011;128:S213 2. NCEP Expert Panel. Circulation 2004;110:227 Current Interpretive Data was last revised on 2017. Testing performed by: [address] [address] Chol/HDL ratio 3 [facility] Comment:Testing performed by : [address] [address] Blood 10/17/2024 9:17 AM CDT 10/17/2024 10:03 AM CDT us Kary Joiner MD LAB BLOOD ORDERABLES Final R esult [facility] [address] [facility] Department [place] [address] * Comprehensive metabolic panel (10/17/2024 9:17 AM CDT) Sodium 139 135 - 145 mmol/L Comment:Testing performed by : [address] [address] Potassium, pl 4.9 3.3 - 4.9 mmol/L [facility] Comment:Testing performed by : [address] [address] Chloride 104 97 - 110 mmol/L [facility] Comment:Testing performed by : [address] [address] CO2 22 22 - 32 mmol/L [facility] Comment:Testing performed by : [address] [address] Anion gap 13 2 - 15 mmol/L [facility] Comment:Testing performed by : [address] [address] BUN 20 6 - 25 mg/dL [facility] Comment:Testing performed by : [address] [address] Creatinine 1.12 0.80 - 1.30 mg/dL [place] Comment:Testing performed by : [address] [address] Glucose 112 70 - 199 mg/dL [facility] Comment: Interpretive Data Fasting glucose >/= 126 mg/dl is diagnostic for diabetes. Fasting is defined as no caloric intake for at least 8 hours. Fasting glucose between 100 mg/dl to 125 mg/dl is diagnostic of prediabetes. In a patient with classic symptoms of hyperglycemia or hyperglycemic crisis, a random glucose >/= 200 mg/dl is diagnostic for diabetes. In the absence of unequivocal hyperglycemia, results should be confirmed by repeat testing. The classification and Diagnosis of Diabetes Diabetes Care 2021; 46: S19-S40. Current interpretive data was last revised 2022. Testing performed by: [address] [address] Calcium 9.8 8.5 - 10.3 mg/dL [facility] Comment:Testing performed by : [address] [address] Bilirubin, total 0.9 0.1 - 1.2 mg/dL [facility] Comment:Testing performed by : [address] [address] Protein, pl 7.1 6.5 - 8.5 g/dL [facility] Comment:Testing performed by : [address] [address] Albumin 4.2 3.5 - 5.0 g/dL [facility] Comment:Testing performed by : [address] [address] Alk phos 94 40 - 130 Units/L [place] Comment:Testing performed by : [address] [address] ALT 13 7 - 55 Units/L [facility]:Testing performed by : [address] [address] AST 23 10 - 50 Units/L [place] Comment:Testing performed by : [address] [address] Blood 10/17/2024 9:17 AM CDT 10/17/2024 10:03 AM CDT us Kary Joiner MD LAB BLOOD ORDERABLES Final R esult Performing Organization Address [facility] de Phone Number [facility] [place] [address] * eGFR (09/25/2024 1:20 PM CDT) eGFR 73 >=60 mL/min/1. 73 m2 Comment: Interpretive Data Reference Interval Normal >/= 90 mL/min/1.73m2 Mildly decreased* 60 - 89 mL/min/1.73m2 Mildly to moderately decreased 45 - 59 mL/min/1.73m2 Moderately to severely decreased 30 - 44 mL/min/1.73m2 Severely decreased 15 - 29 mL/min/1.73m2 Kidney Failure < 15 mL/min/1.73m2 *Relative to young adult level Estimated glomerular filtration rate is determined by the 2020 CKD-EPI equation recommended by the National Kidney Foundation (A Unifying Approach to GFR Estimation: Recommendations of the NKF-ASK Task Force on Reassessing the Inclusion of Race in Diagnosing Kidney Disease, JASN 2020). The CKD-EPI equation should not be used for patients with unstable renal function and has not been validated in children and those over 70. Current interpretive data was last reviewed 2021. Testing performed by: [address] [address] Blood 09/25/2024 1:20 PM CDT 09/25/2024 2:35 PM CDT us Kary Joiner MD LAB BLOOD ORDERABLES Final R esult Performing Organization Address [facility] Co de Phone Number [facility] [address] [facility] [place] [address] * Iron profile w/ IBC (09/25/2024 1:20 PM CDT) Pathologist [facility] Iron 73 50 - 150 mcg/dL Comment:Testing performed by : [address] [address] TIBC 303 250 - 400 mcg/dL [place] Comment:Testing performed by : [address] [address] Transferrin saturation 24 20 - 50 % [facility] Comment:Testing performed by : [address] [address] Blood 09/25/2024 1:20 PM CDT 09/25/2024 2:35 PM CDT Kary Joiner MD LAB BLOOD ORDERABLES Final R esult Performing Organization Address City/[facility]/ZIP Co de Phone Number [place] [facility]0 [facility] [place] [address] * (ABNORMAL) Hemoglobin A1c (09/25/2024 1:20 PM CDT) Hgb A1C 5.9(H) 4.0 - 5.6 % Comment:Testing performed by : [address] [address] Estimated Average Glucose 123 mg/dL [place] Comment: The ADA recommends reporting an estimated Average Glucose (eAG) with all Hemoglobin A1c results using the equation derived from a study of 507 normal and diabetic adults. Minority populations were underrepresented and children were not included. (Diabetes Care 31:6832-5858, 2008). The eAG is not equivalent to a fasting glucose. Testing performed by: [address] [address] Blood 09/25/2024 1:20 PM CDT 09/25/2024 2:36 PM CDT Kary Joiner MD LAB BLOOD ORDERABLES Final R esult Performing Organization Address City/[facility]/ZIP Co de Phone Number [facility] [address] [facility] [place] [address] * Ferritin (09/25/2024 1:20 PM CDT) Pathologist [facility] Ferritin 152 30 - 400 ng/mL Comment:Testing performed by : [address] [address] Blood 09/25/2024 1:20 PM CDT 09/25/2024 2:35 PM CDT us Kary Joiner MD LAB BLOOD ORDERABLES Final R esult [place] [address] [facility] Department [place] [address] * Comprehensive metabolic panel (09/25/2024 1:20 PM CDT) Sodium 139 135 - 145 mmol/L Comment:Testing performed by : [address] [address] Potassium, pl 4.3 3.3 - 4.9 mmol/L [place] Comment:Testing performed by : [address] [address] Chloride 99 97 - 110 mmol/L [place] Comment:Testing performed by : [address] [address] CO2 29 22 - 32 mmol/L [place] Comment:Testing performed by : [address] [address] Anion gap 11 2 - 15 mmol/L [place] Comment:Testing performed by : [address] [address] BUN 19 6 - 25 mg/dL [place] Comment:Testing performed by : [address] [address] Creatinine 1.00 0.80 - 1.30 mg/dL [place] Comment:Testing performed by : [address] [address] Glucose 104 70 - 199 mg/dL [place] Comment: Interpretive Data Fasting glucose >/= 126 mg/dl is diagnostic for diabetes. Fasting is defined as no caloric intake for at least 8 hours. Fasting glucose between 100 mg/dl to 125 mg/dl is diagnostic of prediabetes. In a patient with classic symptoms of hyperglycemia or hyperglycemic crisis, a random glucose >/= 200 mg/dl is diagnostic for diabetes. In the absence of unequivocal hyperglycemia, results should be confirmed by repeat testing. The classification and Diagnosis of Diabetes Diabetes Care 202; 46: S19-S40. Current interpretive data was last revised 2022. Testing performed by: [address] [address] Calcium 9.7 8.5 - 10.3 mg/dL [place] Comment:Testing performed by : [address] [address] Bilirubin, total 0.9 0.1 - 1.2 mg/dL [place] Comment:Testing performed by : [address] [address] Protein, pl 7.5 6.5 - 8.5 g/dL [place] Comment:Testing performed by : [address] [address] Albumin 4.6 3.5 - 5.0 g/dL [place] Comment:Testing performed by : [address] [address] Alk phos 114 40 - 130 Units/L [place] Comment:Testing performed by : [address] [address] ALT 13 7 - 55 Units/L [place] Comment:Testing performed by : [address] [address] AST 21 10 - 50 Units/L [place] Comment:Testing performed by : [address] [address] Blood 09/25/2024 1:20 PM CDT 09/25/2024 2:35 PM CDT us Kary Joiner MD LAB BLOOD ORDERABLES Final R esult [place] 57[address] [facility] Department [place] [address] from Last 3 Months Insurance MEDICARE FOR LIFE MEDICARE FOR LIFE [facility] FOR LIFE MEDICARE Advance Directives For more information, please contact: [phone] Documents on File Type Date Recorded 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 DIRECTIVE 07/19/2020 11:13 AM Mitul r of D[employer] * Full Code (Latest Code Status on File) Date Activated Date Inactivated Comments 01/06/2022 11:12 AM 01/06/2022 4:32 PM * Full Code Date Activated Date Inactivated Comments 11/25/2021 7:44 AM 11/25/2021 2:15 PM * Full Code Date Activated Date Inactivated Comments 07/21/2020 2:11 PM 07/24/2020 4:04 PM Care Teams Logistics Manager Relationship Specialty Start Date End Date Kary Joiner MD [address] [place] [address] [id number] PCP - General Internal Medicine 12/12/17 Rusty Saucedo OD [address] [place] [address] 345189 Optometry 11/10/20 Nehemias Capellan MD [address] [place] [address] Dermatology 11/10/20 Sergio Lara MD [address] [place] [address] Surgeon Urology 01/13/21 Didi Woo MD [address] [place] [address] Consulting Physician Gastroenterology 01/11/22 Mk Moore DO [address] [address] Consulting Physician Orthopedic Surgery 02/08/22 Kelsey Sun NP [address] [place] [address] Nurse Practitioner Urology 03/10/22 Ambrocio Bledsoe MD [address] [address] Consulting Physician Cardiology 08/14/22 Hola Davenport MD [address] [facility] [address] [place] [address] Radiation Oncologist Radiation Oncology 08/24/22 Roger Sibley PA [address] [place] [address] Physician Local Company Flatbed Truck Driver Dermatology 12/21/23
--- OUTSIDE RECORDS SUMMARY | 2024-12-16 13:43 | XMS_ITS | Clinical Summary ---
Author Organization [facility] Address [address] [place] [address] Care Team Providers Care Vp Publisher Development Name Role Phone [address] Primary Care Prov ider Source Comments [facility],non-owned Affiliates and Associated Physician Practices is amultiple site organization consisting of ambulatory clinics and hospital sitesin [place], [place], [place] and [place]. This disclosure is being madepursuant to the Care Everywhere program and may not contain all information available regarding this patient. Last updated 17.[facility] Allergies No known active allergies Medications * Be aware that medications may not be up to date on this document. Alwaysverify current medications with the patient. atorvastatin (LIPITOR) 20 MG tablet Take 20 mg by mouth at bedtime Active ramipril (ALTACE) 2.5 MG capsule Take 2.5 mg by mouth once daily Active levothyroxine (SYNTHROID) 100 MCG tablet Take 100 mcg by mouth daily before breakfast Active clopidogrel (PLAVIX) 75 MG tablet Take 75 mg by mouth once daily Active citalopram (CELEXA) 20 MG tablet Take 20 mg by mouth once daily Active B Complex Vitamins (B-COMPLEX/B-12 PO) Active Fish Oil-Cholecalcif kassandra (FISH OIL + D3) 4105-5192 MG-UNIT CAPS Active Family History Medical History Relation Name Comments Cancer - Colon Father CVA Mother Asthma Neg Hx Autoimmune Disease Neg Hx Bipolar Disorder Neg Hx Cancer - Breast Neg Hx Cancer - Other Neg Hx Cancer - Ovarian Neg Hx Cancer - Pancreatic Neg Hx Cancer - Prostate Neg Hx Depression Neg Hx Eczema Neg Hx Hypertension Neg Hx Migraine Neg Hx Osteoporosis Neg Hx Seizures Neg Hx Sudd. <30 Neg Hx Thyroid Disease Neg Hx Ulcerative Colitis Neg Hx Relation Name Status Comments Father Mother Social History Tobacco Use Types Packs/Day Years Used Date Smoking Tobacco: Former Smokeless Tobacco: Never Tobacco Cessation:Counseling Given: No Alcohol Use Standard Drinks/Week Comments No 0 (1 standard drink = 0.6 oz pur e alcohol) Sex and Gender Information Value Date Recorded Sex Assigned at Male 05/25/2021 7:03 AM ETHERNET NETWORK ARCHITECT Legal Sex Male 11:05 AM CDT Gender Identity Male 05/25/2021 7:03 AM ETHERNET NETWORK ARCHITECT Sexual Orientation Straight 05/25/2021 7: 03 AM ETHERNET NETWORK ARCHITECT Last Filed Vital Signs Vital Sign Reading Time Taken Comments Blood Pressure 130/70 01/19/2017 3:22 PM CDT Pulse 54 01/19/2017 3:22 PM CDT Temperature 36.7 C (98.1 F) 01/19/2017 3:22 PM CDT Respiratory Rate 20 01/19/2017 3:22 PM CDT Oxygen Saturation 97% 01/19/2017 3:22 PM CDT Inhaled Oxygen Concentration - - Weight 80.3 kg (177 lb) 01/19/2017 3:22 PM CDT Height 177.8 cm (5' 10) 01/19/2017 3:22 PM CDT Body Mass Index 25.4 01/19/2017 3:22 PM CDT Plan of Treatment Health Maintenance Due Date Last Done Comments DTAP/TDAP/TD VACCINES (1 - Tdap) 12/11/1954 PNEUMOCOCCAL VACCINE 50+ (1 of 1 - PCV) 1986 ZOSTER VACCINE (1 of 2) 1986 Respiratory Syncytial Virus (RSV) Vaccine Pt: or over 60 yrs (1 - 1-dose 75+ series) 12/11/2011 DEPRESSION SCREENING 04/09/2024 COVID-19 VACCINE (1 - 2023-2 5 season) 2024 INFLUENZA VACCINE (#1) 2024 HEPATITIS B VACCINE Aged Out No longe r eligible based on patient's age to complete this topic HIB VACCINE Aged Out No longer eligi ble based on patient's age to complete this topic HPV VACCINE Aged Out No longer eligi ble based on patient's age to complete this topic MENINGOCOCCAL (Group B) VACC INE SHARED DECISION-MAKING Aged Out No longer eligibl e based on patient's age to complete this topic MENINGOCOCCAL GROUPS A/C/Y/W VACCINE Aged Out No longer eligible b ased on patient's age to complete [place] [address] MEDICARE [facility] MEDICARE Care Teams Vp Publisher Development Relationship Specialty Start Date End Date [facility] [address] [facility], [place] [address] PCP - General Family Medicine 01/19/17
--- OUTSIDE RECORDS SUMMARY | 2024-12-16 13:43 | XMS_ITS ---
Author Organization [facility] Address [address] [place] [address] Care Team Providers Care Human Resources Analyst Name Role Phone Kary Joiner MD Primary Care Provider + [phone] Rusty Saucedo OD Unavailable [phone] Nehemias Capellan MD Unavailable [phone] Sergio Lara MD Unavailable Didi Woo MD Unavailable Mk Moore DO Unavailable [phone] Kelsey Sun NP Unavailable Ambrocio Bledsoe MD Unavailable Hola Davenport MD Unavailable Roger Sibley Unavailable + [phone] Active Problems Problem Noted Date Diagnosed Date Balance problem 03/21/2023 Assessment & Plan (03/21/2023 10:32 AM SENIOR SUPPORT ANALYST): New and worsening MRI brain recommended rule out cerebellar disease Memory changes 03/21/2023 Assessment & Plan (03/21/2023 10:34 AM SENIOR SUPPORT ANALYST): New Forgetting names but recovers Balance issues [...] 03/23/2022 Assessment & Plan (03/23/2022 3:42 PM SENIOR SUPPORT ANALYST): +Gaston test Use tylenol/ibuprofen as needed as [...] (01/16/2022): Added automatically from request for surgery [id number] 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 Assessment & Plan (03/21/2023 7:54 AM SENIOR SUPPORT ANALYST): Flexible sigmoidoscopy December of 2021 Dr. Didi [...] (12/14/2020): Added automatically from request for surgery [id number] History of basal cell carcinoma (BCC) of [...] 03/25/2020 Assessment & Plan (03/25/2020 10:54 AM SENIOR SUPPORT ANALYST): We will check a vein suplex of the RUE to rule out clot Arterial flow is good If not a DVT then possible superficial or other investigation needed such as CT chest/shoulder with potential lymphadenopathy being the cause of this swelling Medicare annual wellness visit, subsequent 10/22 Assessment & Plan (03/26/2024 10:27 AM SENIOR SUPPORT ANALYST): Reviewed previous labs and diagnostic test results. 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 10/27/2018 Overview (11/10/2020): [place] heart [place] [address] Pearl Assessment & Plan (11/10/2020 3:33 PM CDT): Stable Cont on plavix and statin therapy Risk for falls 07/23/2018 Overview (02/08/2022): 11/2021 Fell coming out of a pizza parlor, large step down at the exit, strained r wrist and scraped r knee, no major ijuries Assessment & Plan (03/26/2024 10:26 AM SENIOR SUPPORT ANALYST): Patient at risk for falls due to [...] forearm 03/15/2017 Overview (12/21/2023): 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 Avoid sugar [...] hoarseness Assessment & Plan (03/21/2023 7:52 AM SENIOR SUPPORT ANALYST): Cont current rx medication dose is euthyroid [...] 11/21/2010 Overview (07/23/2018): Also seeing dr Benjamin Borwn senior interaction designer in [place] when estrada there. Sees Dr Bledose at [facility] Assessment & Plan (10/16/2024 4:51 PM CDT): Cont low sodium diet BP controlled Managed by Cardio Dr Ladi garzon Assessment & Plan (09/24/2023 9:57 AM CDT): [...] 9:57 AM CDT): Stable, managed by Cardio Stable on rx meds Assessment & Plan (08/10/2021 9:23 AM CDT): Stable, managed by Cardio Assessment & Plan (11/11/2020 6:48 PM CDT): Continue statin Under care of cardio Dr Rivera Low chol diet discussed Assessment & Plan (10/23/2019 9:18 AM CDT): Continue statin Current Treatment and Therapy Plans Eligard Injection - 45 mg every 24 weeks* Plan Start Date:09/01/2022 Plan Provider:Hola Davenport MD Linked Problems Prostate cancer (HCC) Treatment Medications leuprolide acetate (6 month) (ELIGARD) Past Treatment and Therapy Plans Specialty Infusion Treatment Plan Name Start Date Discontinue Date Treatment Medications Discontinue Reason Plan Provider Leuprolide (LUPRON) for Radiation Oncology 01/27/2021 03/06/2023 leuprolide acetate (6 month) (LUPRON) syringe kit Therapy Complete Rell Love MD Radiation Treatments * Course [id number]_202004/12/2021 - 04/22/2021 Treatment Period Energy Fraction Dose Fractions Total Dose Plans Planned PROSTATE 04/12/2021 - 04/22/2021 725 5 / 3,625 Reference Points Delivered [id number] 04/12/2021 - 04/22/2021 3,625 Lifetime Dose Tracking * Chemical Lifetime Dose Automatic Entry Manual Entr y Fluoro Time 0.953 minutes 0.953 minutes 0 minutes Air kerma at the reference point (Ka,r) 17.01 mGy 1 7.01 mGy 0 mGy Resolved Problems Problem Noted Date Diagnosed Date [...] (01/16/2022): Added automatically from request for surgery [id number] 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 08/15/19 23 Overview (11/23/2021): [...] (04/16/2020): Added automatically from request for surgery [id number] Breast mass, right 02/23/2020 Assessment & Plan (02/23/2020 1:58 PM SENIOR SUPPORT ANALYST): R breast Ultrasound Cut down on caffeine [...] CDT): Has contacted Dr. Sergio Anderson at [place] regarding this-cannot get him until 01/05/2020-was told [...] (11/22/2017): Added automatically from request for surgery [id number] Primary osteoarthritis of right shoulder 01/23/2017 11/10/2020 Primary osteoarthritis of right knee 07/18/2016 11/10/2020 Solitary pulmonary nodule 07/22/2015 Overview (07/23/2018): Pulmonary monitored it for 2-3 yrs was stable unchanged, benign activity Lesion of left lateral popliteal nerve 07/22/2015 11/10/2020 History of coronary artery bypass graft 07/22/2015 07/23/2018
--- OUTSIDE RECORDS SUMMARY | 2024-12-16 13:43 | XMS_ITS | Encounter Summary ---
Author Organization [facility] Address [address] [place] [address] Phone Care Team Providers Care Transit Specialist Name Role Phone Rozina Joiner MD Primary Care Provider + [phone] Rusty Saucedo OD Unavailable [phone] Nehemias Capellan MD Unavailable [phone] Sergio Lara MD Unavailable Rell Love MD Unavailable [phone] Didi Woo MD Unavailable [phone] Mk Moore DO Unavailable [phone] Kelsey Sun NP Unavailable Ambrocio Bledsoe MD Unavailable [phone] Hola Davenport MD Unavailable [phone] Roger Sibley Unavailable + [phone] Encounter Details Date Type Department Care Team (Latest Contact Info) Description 05/12/2022 Orders Only [facility] Scanning, Provider Social History Tobacco Use Types Packs/Day Years Used Date Smoking Tobacco: Former Cigarettes 3 7 1 954 - 1961 Smokeless Tobacco: Never Alcohol Use Standard Drinks/Week Comments Yes 4 (1 standard drink = 0.6 oz pur e alcohol) AUDIT-C Answer Date Recorded Q1: How often do you have a drink containing alc ohol? 2-4 times a month 01/06/2022 Q2: How many drinks containi ng alcohol do you have on a typical day when you are drinking? 1 or 2 01/06/2022 Q3: How often do you have si x or more drinks on one occasion? 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 Author CCM Chronic Pain Care Plan Chronic Care Management Worsening( 10:55 AM HOTEL MAINTENANCE TECHNICIAN) No Pily Hardy, RN Note: Problem: Chronic Pain Goals: 1. Minimize further functional decline 2. Maximize quality of life 3. Control pain Strategies: - Activity/exercise program recommendation - Conservative stepwise pain medicine strategy with multi-disciplinary approach - Recommend healthy lifestyle strategies and compensatory methods as needed documented as of this encounter Procedures Procedure Name Priority Date/Time Associated Diagnosis Comments SCAN - RADIOLOGY/IMAGING 05/12/2022 documented in this encounter Results * SCAN - RADIOLOGY/IMAGING (05/12/2022) Anatomical Region Laterality Modality Other us Provider Scanning Final Result documented in this encounter Visit Diagnoses Not on filedocumented in this encounter Additional Health Concerns Infection Onset Date Last Indicated Resolved Time COVID: Suspected 07/28/2023 07/28/2023 07/28/2023 10:05 AM CDT COVID: Suspected 08/04/2024 08/04/2024 08/04/2024 10:09 AM CDT Influenza, adult 08/04/2024 08/04/2024 08/11/2024 3:06 AM CDT documented as of this encounter Care Teams Transit Specialist Relationship Specialty Start Date End Date Rozina Joiner MD [address] [place] [address] PCP - General Internal Medicine 12/12/17 Rusty Saucedo OD [address] [place] [address] Optometry 11/10/20 Nehemias Capellan MD [address] [place] [address] Dermatology 11/10/20 Sergio Lara MD [address] [place] [address] Surgeon Urology 01/13/21 Rell Love MD [address] [place] [address] Radiation Oncologist Radiation Oncology 04/14/21 Didi Woo MD [address] [place] [address] Consulting Physician Gastroenterology 01/11/22 Mk Moore DO [address] [facility] [address] [address] Consulting Physician Orthopedic Surgery 02/08/22 Kelsey Sun NP [address] [place] [address] Nurse Practitioner Urology 03/10/22 Ambrocio Bledsoe MD [address] [facility] [address] [place] [address] Consulting Physician Cardiology 08/14/22 Hola Davenport MD [address] [facility] [address] [place] [address] Radiation Oncologist Radiation Oncology 08/24/22 Roger Sibley PA [facility] [place] [address] Physician 3Rd Mate Dermatology 12/21/23 documented as of this encounter
--- OUTSIDE RECORDS SUMMARY | 2024-12-16 13:43 | XMS_ITS | Encounter Summary ---
Author Organization [facility] Address [address] [place] [address] Care Team Providers Care Delivery Assistant Name Role Phone Rozina Joiner MD Primary Care Provider + [phone] Jared Johnson MD, Michael G. Unavailable [phone] Rusty Saucedo OD Unavailable [phone] Nehemias Capellan MD Unavailable [phone] Sergio Anderson MD Unavailable [phone] Sergio Lara MD Unavailable Norm Capps MD Unavailable [phone] Rell Love MD Unavailable [phone] Didi Woo MD Unavailable Mk Moore DO Unavailable [phone] Kelsey Sun NP Unavailable Ambrocio Bledsoe MD Unavailable Hola Davenport MD Unavailable Roger Sibley Unavailable + [phone] Encounter Details Date Type Department Care Team (Late st Contact Info) Description 12/08/2020 Telephone [facility] Radiology [address] [place] [address] Vale Adhikari, TRIMMER MACHINE [address] [facility] [address] [facility] [place] [address] Social History Tobacco Use Types Packs/Day Years Used Date Smoking Tobacco: Former Cigarettes 3 7 1 954 - 1961 Smokeless Tobacco: Never Alcohol Use Standard Drinks/Week Comments Yes 4 (1 standard drink = 0.6 oz pur e alcohol) AUDIT-C Answer Date Recorded Q1: How often do you have a drink containing alc ohol? 2-3 times a week 07/21/2020 Q2: How many drinks containi ng alcohol do you have on a typical day when you are drinking? 1 or 2 07/21/2020 Q3: How often do you have si x or more drinks on one occasion? 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 Author CCM Chronic Pain Care Plan Chronic Care Management Worsening( 10:55 AM DIRECTOR OF SOLUTIONS ARCHITECTURE) Pily Vann, RN Note: Problem: Chronic Pain Goals: 1. Minimize further functional decline 2. Maximize quality of life 3. Control pain Strategies: - Activity/exercise program recommendation - Conservative stepwise pain medicine strategy with multi-disciplinary approach - Recommend healthy lifestyle strategies and compensatory methods as needed documented as of this encounter Visit Diagnoses Not on filedocumented in this encounter Additional Health Concerns Infection Onset Date Last Indicated Resolved Time COVID: Suspected 02/14/2022 02/14/2022 02/14/2022 5:29 PM DIRECTOR OF SOLUTIONS ARCHITECTURE COVID: Suspected 07/28/2023 07/28/2023 07/28/2023 10:05 AM CDT COVID: Suspected 08/04/2024 08/04/2024 08/04/2024 10:09 AM CDT Influenza, adult 08/04/2024 08/04/2024 08/11/2024 3:06 AM CDT documented as of this encounter Care Teams Delivery Assistant Relationship Specialty Start Date End Date Rozina Joiner MD [address] [place] [address] PCP - General Internal Medicine 12/12/17 Ben Coleman Jr., MD [address] [place] [address] Consulting Physician Internal Medicine 11/17/19 2 Rusty Saucedo OD [address] [place] [address] Optometry 11/10/20 Nehemias Capellan MD [address] [place] [address] Dermatology 11/10/20 Sergio Anderson MD [address] [place] [address] Referring Physician Neurosurgery 11/10/20 01/12/21 Sergio Lara MD [address] [place] [address] Surgeon Urology 01/13/21 Norm Capps MD [address] [place] [address] Radiation Oncologist Radiation Oncology 01/13/21 Rell Love MD [address] [place] [address] Radiation Oncologist Radiation Oncology 04/14/21 Didi Woo MD [address] [place] [address] Consulting Physician Gastroenterology 01/11/22 Mk Moore DO [address] [facility] [address] [address] Consulting Physician Orthopedic Surgery 02/08/22 Kelsey Sun NP [address] [place] [address] Nurse Practitioner Urology 03/10/22 Ambrocio Bledsoe MD [address] [facility] [address] [place] [address] Consulting Physician Cardiology 08/14/22 Hola Davenport MD [address] [facility] [address] [place] [address] Radiation Oncologist Radiation Oncology 08/24/22 Roger Sibley PA [address] [place] [address] Physician Silk Finisher Dermatology 12/21/23 documented as of this encounter
--- OUTSIDE RECORDS SUMMARY | 2024-12-16 13:43 | XMS_ITS | Encounter Summary ---
Author Organization [facility] Facility Care Team Providers Care Lpn Or Medical Assistant Name Role Phone Cyril Joiner MD Primary Care Provider [phone] Cyril Jioner MD Primary Care Provider [phone] Unknown, Notinfile Primary Care Provider Unavail able Cyril Joiner MD Primary Care Provider [phone] Rozina Joiner MD Primary Care Provider [phone] Jared Johnson MD, Michael G. Unavailable [phone] Rusty Saucedo OD Unavailable [phone] Nehemias Capellan MD Unavailable [phone] Sergio Anderson MD Unavailable [phone] Sergio Lara MD Unavailable Norm Capps MD Unavailable [phone] Rell Love MD Unavailable [phone] Didi Woo MD Unavailable Mk Moore DO Unavailable [phone] Kelsey Sun NP Unavailable Ambrocio Bledsoe MD Unavailable Hola Davenport MD Unavailable Roger Sibley Unavailable [phone] Encounter Details Date Type Department Care Team (Latest Contact Info) Description 07/26/2015 Orders Only [facility] CLINCONV Provider, MD Darin [address] [place] [address] Social History Tobacco Use Types Packs/Day Years Used Date Smoking Tobacco: Never Assessed Sex and Gender Information Value Date Recorded Sex Assigned at Not on file Legal 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 Historical Provider Final Res ult documented in this encounter Visit Diagnoses Not on filedocumented in this encounter Additional Health Concerns Infection Onset Date Last Indicated Resolved Time COVID: Suspected 02/14/2022 02/14/2022 02/14/2022 5:29 PM CRANE OPERATOR CAB COVID: Suspected 07/28/2023 07/28/2023 07/28/2023 10:05 AM CDT COVID: Suspected 08/04/2024 08/04/2024 08/04/2024 10:09 AM CDT Influenza, adult 08/04/2024 08/04/2024 08/11/2024 3:06 AM CDT documented as of this encounter Care Teams Lpn Or Medical Assistant Relationship Specialty Start Date End Date Cyril Joiner MD [address] [place] [address] PCP - General 10/09/16 10/29/16 Cyril Joiner MD [address] [place] [address] PCP - General 10/30/16 10/30/16 Unknown, Notinfile PCP - General 10/31/16 11/05/16 Cyril Joiner MD [address] [place] [address] PCP - General 11/06/16 12/11/17 Rozina Joiner MD [address] [place], [place] [address] PCP - General Internal Medicine 12/12/17 Ben Coleman Jr., MD [address] [place] [address] [id number] Consulting Physician Internal Medicine 11/17/19 2 Rusty Saucedo, MASSIMO [address] [place] [address] Optometry 11/10/20 Nehemias Capellan MD [address] [place], [place] [address] Dermatology 11/10/20 Sergio Anderson MD [address] [place], [place] [address] Referring Physician Neurosurgery 11/10/20 01/12/21 Sergio Lara MD [address] [place] [address] Surgeon Urology 01/13/21 Norm Capps MD [address] [place] [address] Radiation Oncologist Radiation Oncology 01/13/21 Rell Love MD [address] [address] Radiation Oncologist Radiation Oncology 04/14/21 Didi Woo MD [address] [place] [address] Consulting Physician Gastroenterology 01/11/22 Mk Moore DO [address] [address] Consulting Physician Orthopedic Surgery 02/08/22 Kelsey Sun NP [address] [place] [address] Nurse Practitioner Urology 03/10/22 Ambrocio Bledsoe MD [address] [facility] [address] [place] [address] Consulting Physician Cardiology 08/14/22 Hola Davenport MD [address] [facility] [address] [place] [address] Radiation Oncologist Radiation Oncology 08/24/22 Roger Sibley PA [address] [place] [address] Physician Titrator Dermatology 12/21/23 documented as of this encounter
--- OUTSIDE RECORDS SUMMARY | 2024-12-16 13:43 | XMS_ITS | Encounter Summary ---
Author Organization [facility] Facility Care Team Providers Care Aircraft Maintenance Manager Name Role Phone Cyril Joiner MD Primary Care Provider [phone] Cyril Joiner MD Primary Care Provider [phone] Unknown, Notinfile Primary Care Provider Unavail able Cyril Joiner MD Primary Care Provider [phone] Rozina Joiner MD Primary Care Provider [phone] Jared Johnson MD, Michael G. Unavailable [phone] Rusty Saucedo OD Unavailable [phone] Nehemias Capellan MD Unavailable [phone] Sergio Anderson MD Unavailable [phone] Sergio Lara MD Unavailable Norm Capps MD Unavailable [phone] Rell Love MD Unavailable [phone] Didi Woo MD Unavailable [phone] Mk Moore DO Unavailable [phone] Kelsey Sun NP Unavailable Ambrocio Bledsoe MD Unavailable Hola Davenport MD Unavailable Roger Sibley Unavailable [phone] Encounter Details Date Type Department Care Team (Latest Contact Info) Description 07/27/2016 Orders Only [facility] CLINCONV Provider, MD Darin [address] [place] [address] Social History Tobacco Use Types Packs/Day Years Used Date Smoking Tobacco: Never Assessed Sex and Gender Information Value Date Recorded Sex Assigned at Not on file Legal Sex Male 11:32 PM 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 Historical Provider Final Res ult documented in this encounter Visit Diagnoses Not on filedocumented in this encounter Additional Health Concerns Infection Onset Date Last Indicated Resolved Time COVID: Suspected 02/14/2022 02/14/2022 02/14/2022 5:29 PM MEDICAL RECEPTION SPECIALIST COVID: Suspected 07/28/2023 07/28/2023 07/28/2023 10:05 AM CDT COVID: Suspected 08/04/2024 08/04/2024 08/04/2024 10:09 AM CDT Influenza, adult 08/04/2024 08/04/2024 08/11/2024 3:06 AM CDT documented as of this encounter Care Teams Aircraft Maintenance Manager Relationship Specialty Start Date End Date Cyril Joiner MD [address] [facility] [address] PCP - General 10/09/16 10/29/16 Cyril Joiner MD [address] [facility] [address] PCP - General 10/30/16 10/30/16 Unknown, Notinfile PCP - General 10/31/16 11/05/16 Cyril Joiner MD [address] [facility] [place] [address] PCP - General 11/06/16 12/11/17 Rozina Joiner MD [address] [place], [place] [address] PCP - General Internal Medicine 12/12/17 Ben Coleman Jr., MD [address] [place] [address]44009 Consulting Physician Internal Medicine 11/17/19 2 Rusty Saucedo, MASSIMO [address] [place] [address] Optometry 11/10/20 Nehemias Capellan MD [address] [place], [place] [address] Dermatology 11/10/20 Sergio Anderson MD [address] [place], [place] [address] Referring Physician Neurosurgery 11/10/20 01/12/21 Sergio Lara MD [address] [place] [address] Surgeon Urology 01/13/21 Norm Capps MD [address] [place] [address] Radiation Oncologist Radiation Oncology 01/13/21 Rell Love MD [address] [address] Radiation Oncologist Radiation Oncology 04/14/21 Didi Woo MD [address] [place] [address] Consulting Physician Gastroenterology 01/11/22 Mk Moore DO [address] [address] Consulting Physician Orthopedic Surgery 02/08/22 Kelsey Sun NP [address] [place] [address] Nurse Practitioner Urology 03/10/22 Ambrocio Bledsoe MD [address] [facility] [address] [place] [address] Consulting Physician Cardiology 08/14/22 Hola Davenport MD [address] [facility] [address] [place] [address] Radiation Oncologist Radiation Oncology 08/24/22 Roger Sibley PA [address] [place] [address] Physician Shovel Operator Dermatology 12/21/23 documented as of this encounter
--- OUTSIDE RECORDS SUMMARY | 2024-12-16 13:43 | XMS_ITS | Encounter Summary ---
Author Organization [facility] Address [address] [place] [address] Phone Care Team Providers Care Programmer Numerical Control Name Role Phone Rozina Joiner MD Primary Care Provider [phone] Jared Johnson MD, Ben Almanzar Unavailable [phone] Rusty Saucedo OD Unavailable [phone] Nehemias Capellan MD Unavailable Sergio Anderson MD Unavailable [phone] Sergio Lara MD Unavailable Norm Capps MD Unavailable [phone] Rell Love MD Unavailable [phone] Didi Woo MD Unavailable Mk Moore DO Unavailable [phone] Kelsey Sun NP Unavailable Ambrocio Bledsoe MD Unavailable Hola Davenport MD Unavailable [phone] Roger Sibley Unavailable [phone] Encounter Details Date Type Department Care Team (Late st Contact Info) Description 06/12/2019 Telephone [facility] Medicine Scheduling [address] [place] [address] Corina Yang Social History Tobacco Use Types Packs/Day Years Used Date Smoking Tobacco: Former Cigarettes Q uit: 03/13/1958 Smokeless Tobacco: Never Alcohol Use Standard Drinks/Week Comments Yes 1 (1 standard drink = 0.6 oz pur e alcohol) PHQ-2 Answer Date Recorded PHQ-2 Score 0 11/29/2018 Sex and Gender Information Value Date Recorded Sex Assigned at Not on file Legal Sex Male 11:32 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 Gender Identity Male 07/25/2023 10:55 AM CDT Sexual Orientation Straight 10/22/2018 6: 47 AM CDT documented as of this encounter Plan of Treatment Not on file documented as of this encounter Visit Diagnoses Not on filedocumented in this encounter Additional Health Concerns Infection Onset Date Last Indicated Resolved Time COVID: Suspected 02/14/2022 02/14/2022 02/14/2022 5:29 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 COVID: Suspected 07/28/2023 07/28/2023 07/28/2023 10:05 AM CDT COVID: Suspected 08/04/2024 08/04/2024 08/04/2024 10:09 AM CDT Influenza, adult 08/04/2024 08/04/2024 08/11/2024 3:06 AM CDT documented as of this encounter Care Teams Programmer Numerical Control Relationship Specialty Start Date End Date Rozina Joiner MD [address] [place] [address] PCP - General Internal Medicine 12/12/17 Ben Coleman Jr., MD [address] [place] [address] Consulting Physician Internal Medicine 11/17/19 2 Rusty Saucedo OD [address] [place] [address] Optometry 11/10/20 Nehemias Capellan MD [address] [place] [address] Dermatology 11/10/20 Sergio Anderson MD [address] [place] [address] Referring Physician Neurosurgery 11/10/20 01/12/21 Sergio Lara MD [address] [place] [address] Surgeon Urology 01/13/21 Norm Capps MD [address] [place] [address] Radiation Oncologist Radiation Oncology 01/13/21 Rell Love MD [address] [place] [address] Radiation Oncologist Radiation Oncology 04/14/21 Didi Woo MD [address] [place] [address] Consulting Physician Gastroenterology 01/11/22 Mk Moore DO [address] [address] Consulting Physician Orthopedic Surgery 02/08/22 Kelsey Sun NP [address] [place] [address] Nurse Practitioner Urology 03/10/22 Ambrocio Bledsoe MD [address] [facility] [address] [place] [address] Consulting Physician Cardiology 08/14/22 Hola Davenport MD [address] [facility] [address] [place] [address] Radiation Oncologist Radiation Oncology 08/24/22 Roger Sibley PA [facility] [place] [address] Physician Paster Operator Dermatology 12/21/23 documented as of this encounter
--- OUTSIDE RECORDS SUMMARY | 2024-12-16 13:43 | XMS_ITS | Clinical Summary ---
Author Organization [facility] Address [address] [place] [address] Care Team Providers Care Lot Worker Name Role Phone Rozina Joiner MD Primary Care Provider [phone] Allergies No known active allergies Medications atorvastatin 20 MG tablet Take 20 mg by mouth daily. 07/14/2021 Active calcium carb-cholecalcif kassandra 600-400 MG-UNIT Tab tablet 10/07/2020 Active citalopram 20 MG tablet Take 1 tablet by mouth daily. 12/14/2020 Active clopidogrel 75 MG tablet Take 1 tablet by mouth daily. 10/18/2020 Active Fish Oil-Cholecalcife rol (FISH OIL + D3) 2097-5094 MG-UNIT Cap Active levothyroxine 100 MCG tablet Take 1 tablet by mouth daily. 11/10/2020 Active ramipril 2.5 MG capsule Take 2.5 mg by mouth daily. Active meloxicam 7.5 MG tablet Take 1 tablet (7.5 mg total) by mouth daily. 30 tablet 08/21/2021 Active Family History Medical History Relation Comments Cancer Brother Cancer Father Heart Disease Mother Stroke Mother Relation Status Comments Brother Father Mother Social History Tobacco Use Types Packs/Day Years Used Date Smoking Tobacco: Former Smokeless Tobacco: Never Alcohol Use Standard Drinks/Week Comments Yes 0 (1 standard drink = 0.6 oz pur e alcohol) ocassionally Sex and Gender Information Value Date Recorded Sex Assigned at Not on file Legal Sex Male 5:18 PM CDT Gender Identity Male 05/25/2021 10:07 AM TRANSITION COACH Sexual Orientation Straight 05/25/2021 10 :07 AM TRANSITION COACH Last Filed Vital Signs Vital Sign Reading Time Taken Comments Blood Pressure 126/64 08/21/2021 1:30 PM CDT Pulse 60 08/21/2021 1:30 PM CDT Temperature 36.7 C (98 F) 08/21/2021 1:30 PM CDT Respiratory Rate 18 08/21/2021 1:30 PM CDT Oxygen Saturation 99% 08/21/2021 1:30 PM CDT Inhaled Oxygen Concentration - - Weight 79.4 kg (175 lb) 08/21/2021 1:30 PM CDT Height 177.8 cm (5' 10) 08/21/2021 1:30 PM CDT Body Mass Index 25.11 08/21/2021 1:30 PM CDT Plan of Treatment Health Maintenance Due Date Last Done Comments Annual Medicare Wellness Visit 2001 RSV Immunization or 60+ Years (1 - 1-dose 75+ series) 12/11/2011 DTaP, Tdap and Td Vaccines (2 - Td or Tdap) 09/07/2016 09/07/2006 COVID-19 Vaccine ( season) 2024 12/20/2021, 01/19/2021, 06/26/2020, Additional history exists Zoster Vaccines Completed 03/19/2018, 12/08, 04/09/2007 Pneumococcal Vaccine: 50+ Years Completed 08/14/2022, 07/26/2015, 02/07/2011 Meningococcal B Vaccine Aged Out No l onger eligible based on patient's age to complete this topic Meningococcal Vaccine Aged Out No tierney felipe eligible based on patient's age to complete this topic RSV Immunizations Under 20 Months Aged Out No longer eligible based on patient's age to complete this topic Insurance MEDICARE [facility] Care Teams Lot Worker Relationship Specialty Start Date End Date Rozina Joiner MD [address] [facility] [place] [address] PCP - General INTERNAL MEDICINE 08/21/21
--- OUTSIDE RECORDS SUMMARY | 2024-12-16 13:43 | XMS_ITS | Encounter Summary ---
Author Organization [facility] Address [address] [place] [address] Phone Care Team Providers Care Mail Superintendent Name Role Phone Rozina Joiner MD Primary Care Provider [phone] Jared Johnson MD, Ben Almanzar Unavailable [phone] Rusty Saucedo OD Unavailable [phone] Nehemias Capellan MD Unavailable [phone] Sergio Lara MD Unavailable Norm Capps MD Unavailable [phone] Rell Love MD Unavailable [phone] Didi Woo MD Unavailable Mk Moore DO Unavailable [phone] Kelsey Sun NP Unavailable Ambrocio Bledsoe MD Unavailable [phone] Hola Davenport MD Unavailable [phone] Roger Sibley Unavailable + [phone] Encounter Details Date Type Department Care Team (Latest Contact Info) Description 06/16/2021 Orders Only [facility] Scanning, Provider [...] containing alc ohol? 2-3 times a week 12/14/2020 Q2: How many drinks containi ng alcohol do you have on a typical day when you are drinking? 1 or 2 12/14/2020 Q3: How often do you have si x or more drinks on one occasion? 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 Observation and risk factor modification recommended * Brandie Hall RN - 06/16/2021 11:59 PM CST Portal message sent to pt with review of results. documented in this encounter Plan of Treatment Not on file documented as of this encounter Goals Goal Patient Goal Type Associated Problems Recent Progress Patient-Stated? Author CCM Chronic Pain Care Plan Chronic Care Management Worsening( 10:55 AM ROLLER PRINTING SUPERVISOR) No Pily Hardy, RN Note: Problem: Chronic Pain Goals: 1. Minimize further functional decline 2. Maximize quality of life 3. Control pain Strategies: - Activity/exercise program recommendation - Conservative stepwise pain medicine strategy with multi-disciplinary approach - Recommend healthy lifestyle strategies and compensatory methods as needed documented as of this encounter Procedures Procedure Name Priority Date/Time Associated Diagnosis Comments SCAN - RADIOLOGY/IMAGING 06/16/2021 documented in this encounter Results * SCAN - RADIOLOGY/IMAGING (06/16/2021) Anatomical Region Laterality Modality Other us Provider Scanning Final Result documented in this encounter Visit Diagnoses Not on filedocumented in this encounter Additional Health Concerns Infection Onset Date Last Indicated Resolved Time COVID: Suspected 02/14/2022 02/14/2022 02/14/2022 5:29 PM ROLLER PRINTING SUPERVISOR COVID: Suspected 07/28/2023 07/28/2023 07/28/2023 10:05 AM CDT COVID: Suspected 08/04/2024 08/04/2024 08/04/2024 10:09 AM CDT Influenza, adult 08/04/2024 08/04/2024 08/11/2024 3:06 AM CDT documented as of this encounter Care Teams Mail Superintendent Relationship Specialty Start Date End Date Rozina Joiner MD [address] [place] [id number] PCP - General Internal Medicine 12/12/17 Ben Coleman Jr., MD [address] [place] [address] [id number] Consulting Physician Internal Medicine 11/17/19 2 Rusty Saucedo OD [address] [place] [address] [id number] Optometry 11/10/20 Nehemias Capellan MD [address] [place] [address] 029759 Dermatology 11/10/20 Sergio Lara MD [address] [place] [address]109 Surgeon Urology 01/13/21 Norm Capps MD [address] [place] [address] Radiation Oncologist Radiation Oncology 01/13/21 Rell Love MD [address] [place] [address] [id number] Radiation Oncologist Radiation Oncology 04/14/21 Didi Woo MD [address] [place] [address] Consulting Physician Gastroenterology 01/11/22 Mk Moore DO [address] [address] Consulting Physician Orthopedic Surgery 02/08/22 Kelsey Sun NP [address] [place] [address] Nurse Practitioner Urology 03/10/22 Ambrocio Bledsoe MD [address] [address] Consulting Physician Cardiology 08/14/22 Hola Davenport MD [address] [facility] [address] [place] [address] Radiation Oncologist Radiation Oncology 08/24/22 Roger Sibley PA [address] [place] [address] Physician Operator/Assistant Foreman Dermatology 12/21/23 documented as of this encounter
--- OUTSIDE RECORDS SUMMARY | 2024-12-16 13:43 | XMS_ITS | Encounter Summary ---
Author Organization [facility] Address [address] [place] [address] Phone Care Team Providers Care Grievance Manager Name Role Phone Cyril Joiner MD Primary Care Provider [phone] Cyril Joiner MD Primary Care Provider [phone] Unknown, Notinfile Primary Care Provider Unavail able Cyril Joiner MD Primary Care Provider [phone] Rozina Joiner MD Primary Care Provider Jared Johnson MD, Ben Almanzar Unavailable Rusty Saucedo OD Unavailable Nehemias Capellan MD Unavailable [phone] Sergio Anderson MD Unavailable [phone] Sergio Lara MD Unavailable Norm Capps MD Unavailable Rell Love MD Unavailable [phone] Didi Woo MD Unavailable Mk Moore DO Unavailable [phone] Kelsey Sun NP Unavailable Ambrocio Bledsoe MD Unavailable [phone] Hola Davenport MD Unavailable [phone] Roger Sibley Unavailable [phone] Encounter Details Date Type Department Care Team (Latest Contact Info) Description 10/11/2016 Orders Only [facility] CONVERSION Scanning, Provider Social History Tobacco Use Types Packs/Day Years Used Date Smoking Tobacco: Former Sex and Gender Information Value Date Recorded Sex Assigned at Not on file Legal Sex Male 11:32 PM [employer] Gender Identity Male 07/25/2023 10:55 AM CDT Sexual Orientation Straight 10/22/2018 6: 47 AM CDT documented as of this encounter Plan of Treatment Not on file documented as of this encounter Procedures Procedure Name Priority Date/Time Associated Diagnosis Comments VASCULAR LABORATORY REPORT 10/11/2016 11:50 PM CDT documented in this encounter Results * VASCULAR LABORATORY REPORT (10/11/2016 11:50 PM CDT) Anatomical Region Laterality Modality Ultrasound us Provider Scanning CV VASCULAR PROCEDURES Final R esult documented in this encounter Visit Diagnoses Not on filedocumented in this encounter Additional Health Concerns Infection Onset Date Last Indicated Resolved Time COVID: Suspected 02/14/2022 02/14/2022 02/14/2022 5:29 PM [facility]SCUTTER COVID: Suspected 07/28/2023 07/28/2023 07/28/2023 10:05 AM CDT COVID: Suspected 08/04/2024 08/04/2024 08/04/2024 10:09 AM CDT Influenza, adult 08/04/2024 08/04/2024 08/11/2024 3:06 AM CDT documented as of this encounter Care Teams Grievance Manager Relationship Specialty Start Date End Date Cyril Joiner MD [address] [facility] [place] [address] PCP - General 10/09/16 10/29/16 Cyril Joiner MD [address] [facility] [place] [address] PCP - General 10/30/16 10/30/16 Unknown, Notinfile PCP - General 10/31/16 11/05/16 Cyril Joiner MD [address] [facility] [place] [address] PCP - General 11/06/16 12/11/17 Rozina Joiner MD [address] [place], [place] [address] PCP - General Internal Medicine 12/12/17 Ben Coleman Jr., MD [address] [place], [place] [address] Consulting Physician Internal Medicine 11/17/19 2 Rusty Saucedo, [address] [place] [address] Optometry 11/10/20 Nehemias Capellan MD [address] [place], [place] [address] Dermatology 11/10/20 Sergio Anderson MD [address] [place], [place] [address] Referring Physician Neurosurgery 11/10/20 01/12/21 Sergio Lara MD [address] [place] [address] Surgeon Urology 01/13/21 Norm Capps MD [address] [place], [place] [address] Radiation Oncologist Radiation Oncology 01/13/21 Rell Love MD [address] [address] Radiation Oncologist Radiation Oncology 04/14/21 Didi Woo MD [address] [place] [address] Consulting Physician Gastroenterology 01/11/22 Mk Moore DO [address] [address] Consulting Physician Orthopedic Surgery 02/08/22 Kelsey Sun NP [address] [place] [address] Nurse Practitioner Urology 03/10/22 Ambrocio Bledsoe MD [address] [facility] [address] [place] [address] Consulting Physician Cardiology 08/14/22 Hola Davenport MD [address] [facility] [address] [place] [address] Radiation Oncologist Radiation Oncology 08/24/22 Roger Sibley PA [address] [place] [address] Physician Business Intelligence Developer Dermatology 12/21/23 documented as of this encounter
--- NOTE | 2024-12-16 13:48 | PC.NURSE ---
Pt. able to walk in hallway independently. Denies dizziness or being lightheaded. Only complaint is a headache.
[2024-12-16] MEDS: ACETAMINOPHEN 500 MG TABLET 1000 MG PO (14:19)
--- OUTSIDE RECORDS SUMMARY | 2024-12-16 15:09 | XMS_ITS | Clinical Summary ---
Author Organization [facility] Address [address] [place] [address] Care Team Providers Care Agricultural And Forestry Supervisor Name Role Phone Kary Joiner MD Primary Care Provider + [phone] Rusty Saucedo OD Unavailable [phone] Nehemias Capellan MD Unavailable [phone] Sergio Lara MD Unavailable Didi Woo MD Unavailable [phone] Mk Moore DO Unavailable [phone] Kelsey Sun NP Unavailable [phone] Ambrocio Bledsoe MD Unavailable Hola Davenport MD Unavailable Roger Sibley Unavailable + [phone] Allergies No known active allergies Medications multivitamin capsuleIndications :Vitamin Deficiency Prevention Take 1 capsule by mouth every morning Active omega 8-bdz-zud-fish oil 1,000 mg (120 mg-180 mg) capsuleIndications :hypertriglyceride danielle Take 1 capsule (1,000 mg total) by mouth every morning Active B-COMPLEX WITH VITAMIN C ORALIndications:oropeza pplement Take 1 tablet by mouth every morning 12/15/19 20 Active calcium carbonate-vitamin D3 (CALTRATE 600 + D) 1500 mg (600 mg elemental) -400 units per tablet 10/08/19 21 Active vit C,T-Rl-sdlfl-lutei n-zeaxan (PreserVision AREDS-2) 250-90-40-1 mg capsule 12/31/19 [...] 03/21/2023 Assessment & Plan (03/21/2023 10:32 AM LATHE MECHANIC): New and worsening MRI brain recommended rule out cerebellar disease Memory changes 03/21/2023 Assessment & Plan (03/21/2023 10:34 AM LATHE MECHANIC): New Forgetting names but recovers Balance issues [...] 03/23/2022 Assessment & Plan (03/23/2022 3:42 PM LATHE MECHANIC): +Gaston test Use tylenol/ibuprofen as needed as [...] (01/16/2022): Added automatically from request for surgery [id number] 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 Assessment & Plan (03/21/2023 7:54 AM LATHE MECHANIC): Flexible sigmoidoscopy December of 2021 Dr. Didi [...] (12/14/2020): Added automatically from request for surgery [id number] History of basal cell carcinoma (BCC) of [...] 03/25/2020 Assessment & Plan (03/25/2020 10:54 AM LATHE MECHANIC): We will check a vein suplex of the RUE to rule out clot Arterial flow is good If not a DVT then possible superficial or other investigation needed such as CT chest/shoulder with potential lymphadenopathy being the cause of this swelling Medicare annual wellness visit, subsequent 10/22 Assessment & Plan (03/26/2024 10:27 AM LATHE MECHANIC): Reviewed previous labs and diagnostic test results. 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 10/27/2018 Overview (11/10/2020): Open heart [place] [address] Pearl Assessment & Plan (11/10/2020 3:33 PM CDT): Stable Cont on plavix and statin therapy Risk for falls 07/23/2018 Overview (02/08/2022): 11/2021 Fell coming out of a pizza parlor, large step down at the exit, strained r wrist and scraped r knee, no major ijuries Assessment & Plan (03/26/2024 10:26 AM LATHE MECHANIC): Patient at risk for falls due to [...] forearm 03/15/2017 Overview (12/21/2023): excision left forearm, 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 Avoid sugar [...] hoarseness Assessment & Plan (03/21/2023 7:52 AM LATHE MECHANIC): Cont current rx medication dose is euthyroid [...] Overview (07/23/2018): Also seeing dr Benjamin Brown athletic director in [place] when [facility] there. Sees Dr Bledsoe at [facility]. Assessment & Plan (10/16/2024 4:51 PM CDT): [...] (01/16/2022): Added automatically from request for surgery [id number] 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 08/15/19 23 Overview (11/23/2021): [...] (04/16/2020): Added automatically from request for surgery [id number] Breast mass, right 02/23/2020 Assessment & Plan (02/23/2020 1:58 PM LATHE MECHANIC): R breast Ultrasound Cut down on caffeine [...] CDT): Has contacted Dr. Sergio Anderson at [facility] regarding this-cannot get him until 01/05/2020-was told [...] (11/22/2017): Added automatically from request for surgery [id number] Primary osteoarthritis of right shoulder 01/23/2017 11/10/2020 Primary osteoarthritis of right knee 07/18/2016 11/10/2020 Solitary pulmonary nodule 07/22/2015 Overview (07/23/2018): Pulmonary monitored it for 2-3 yrs was stable unchanged, benign activity Lesion of left lateral popliteal nerve 07/22/2015 11/10/2020 History of coronary artery bypass graft 07/22/2015 07/23/2018 Encounters Date Type Department Care Team Description 12/13/2024 9:05 AM CDT Lab [facility] Lab [address] [place] [address] Prostate cancer (HCC) 10/17/2024 9:10 AM CDT Lab [facility] Lab [address] [place] [address] Essential hypertension; Pure hypercholesterolemia ; Acquired hypothyroidism; Abnormal glucose 10/17/2024 Results Follow-Up [facility] Primary Care [address] [facility] [address] [place] [phone] Kary Joiner MD Hepatitis B Surface Antigen Blood, Hemoglobin A1c, TSH, Additional followed-up results: 5 10/16/2024 4:00 PM CDT Office Visit 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; Mild episode of recurrent major depressive disorder 09/30/2024 Results Follow-Up [facility] Care [address] [address] Jane Heart MD Ferritin, Iron profile w/ IBC, Hemoglobin A1c, Additional followed-up results: 2 09/25/2024 1:00 PM CDT Lab [facility] Lab [address] [place] [address] Iron deficiency anemia secondary to inadequate dietary iron intake; Abnormal glucose from Last 3 Months Immunizations Immunization Administration Dates Next Due COVID-19 mRNA ([employer]) 0.3 m L (30 mcg) vaccine (12 [...] on file Legal Sex Male 11:32 PM LATHE MECHANIC Gender Identity Male 07/25/2023 10:55 AM CDT [...] Plan Chronic Care Management Worsening( 10:55 AM LATHE MECHANIC) No Pily Hardy, RN Note: Problem: Chronic [...] CDT 12/13/2024 10:58 AM CDT Kelsey Sun TRUCKER LAB BLOOD ORDERABLES F inal Result [facility] [address] [facility] Department [place] [address] * PSA diagnostic (12/13/2024 9:08 [...] data last revised 21. Testing performed by: [address] [address] Blood 12/13/2024 9:08 AM CDT 12/13/2024 9:12 AM CDT us Kelsey Sun NP LAB BLOOD ORDERABLES F inal Result [facility] [address] [facility] Department [place] [address] * eGFR (10/17/2024 9:17 AM [...] was last reviewed 2021. Testing performed by: [address] [address] Blood 10/17/2024 9:17 AM CDT 10/17/2024 10:03 AM CDT us Kary Joiner MD LAB BLOOD ORDERABLES Final R esult [facility] [address] [facility] Department [place] [address] * Differential, auto (10/17/2024 9:17 AM CDT) Neutrophil abs 3.76 1.50 - 6.50 K/cumm Comment:Testing performed by : [address] [address] Imm gran abs 0.02 0.00 - 0.10 K/cumm [facility] Comment:Testing performed by : [address] [address] Lymphocyte abs 2.10 0.80 - 3.30 K/cumm [facility] Comment:Testing performed by : [address] [address] Monocyte abs 0.74 0.20 - 0.80 K/cumm [facility] Comment:Testing performed by : [address] [address] Eosinophil abs 0.19 0.00 - 0.50 K/cumm [facility] Comment:Testing performed by : [address] [address] Basophil abs 0.05 0.00 - 0.10 K/cumm [facility] Comment:Testing performed by : [address] [address] Neutrophil pct 54.8 % [facility] Comment: Interpretive Data Percent cell count reference ranges are not reported, since discordance with absolute values may lead to misinterpretation of CBC data. Current Interpretive Data was last revised on 2017. Testing performed by: [address] [address] Imm gran pct 0.3 % [facility] Comment: Interpretive Data Percent cell count reference ranges are not reported, since discordance with absolute values may lead to misinterpretation of CBC data. Current Interpretive Data was last revised on 2017. Testing performed by: [address] [address] Lymphocyte pct 30.6 % [facility] Comment: Interpretive Data Percent cell count reference ranges are not reported, since discordance with absolute values may lead to misinterpretation of CBC data. Current Interpretive Data was last revised on 2017. Testing performed by: [address] [address] Monocyte pct 10.8 % [facility] Comment: Interpretive Data Percent cell count reference ranges are not reported, since discordance with absolute values may lead to misinterpretation of CBC data. Current Interpretive Data was last revised on 2017. Testing performed by: [address] [address] Eosinophil pct 2.8 % [facility] Comment: Interpretive Data Percent cell count reference ranges are not reported, since discordance with absolute values may lead to misinterpretation of CBC data. Current Interpretive Data was last revised on 2017. Testing performed by: [address] [address] Basophil pct 0.7 % [facility] Comment: Interpretive Data Percent cell count reference ranges are not reported, since discordance with absolute values may lead to misinterpretation of CBC data. Current Interpretive Data was last revised on 2017. Testing performed by: [address] [address] Blood 10/17/2024 9:17 AM CDT 10/17/2024 10:04 AM CDT us Kary Joiner MD LAB BLOOD ORDERABLES Final R esult [facility] [address] [facility] Department [place] [address] * (ABNORMAL) CBC with auto differential (10/17/2024 9:17 AM CDT) WBC 6.86 3.80 - 9.90 K/cumm Comment:Testing performed by : [address] [address] Hgb 11.7(L) 13.0 - 17.5 g/dL [facility] Comment:Testing performed by : [address] [place] [address] Hct 35.7(L) 38.9 - 50.3 % [facility] Comment:Testing performed by : [address], [address] Plt 313 150 - 400 K/cumm [facility] Comment:Testing performed by : [address], [address] MPV 10.4 9.1 - 12.3 fL [facility] Comment:Testing performed by : [address], [address] RBC 3.69(L) 4.30 - 5.80 M/cumm [facility] Comment:Testing performed by : [address], [address] MCV 96.7(H) 81.3 - 96.4 fL [facility] Comment:Testing performed by : [address], [address] MCH 31.7 27.1 - 33.3 pg [facility] Comment:Testing performed by : [address], [address] MCHC 32.8 32.3 - 35.7 g/dL [facility] Comment:Testing performed by : [address], [address] RDW CV 13.6 11.1 - 14.9 % [facility] Comment:Testing performed by : [address], [address] RDW SD 48.4(H) 35.7 - 48.1 fL [facility] Comment:Testing performed by : [address], [address] NRBC abs 0.00 0.00 - 0.01 K/cumm [facility] Comment:Testing performed by : [address], [address] Blood 10/17/2024 9:17 AM CDT 10/17/2024 10:04 AM CDT us Kary Joiner MD LAB BLOOD ORDERABLES Final R esult Performing Organization Address [facility]/ZIP Co de Phone Number [facility] [address] [address] * Hepatitis B Surface Antigen Blood (10/17/2024 9:17 AM CDT) HepBsAg Nonreactive Nonreactive Blood 10/17/2024 9:17 AM CDT 10/17/2024 12:31 PM CDT us Kary Joiner MD LAB MICROBIOLOGY - GENERAL O RDERABLES Final Result Performing Organization Address [facility] Co de Phone Number [facility] [address] [address] * TSH (10/17/2024 9:17 AM CDT) Pathologist [facility] Thyroid Stimulating Hormone 1.01 0.30 - 4.20 mcIUnit/mL Comment:Testing performed by : [facility], [address] [place] [address]., [address] Blood 10/17/2024 9:17 AM CDT 10/17/2024 10:03 AM CDT Kary Joiner MD LAB BLOOD ORDERABLES Final R esult Performing Organization Address [facility] Co de Phone Number [facility] [address] * (ABNORMAL) Hemoglobin A1c (10/17/2024 9:17 AM CDT) Hgb A1C 6.0(H) 4.0 - 5.6 % Comment:Testing performed by : [address] [address] Estimated Average Glucose 126 mg/dL [facility] Comment: The ADA recommends reporting an estimated Average Glucose (eAG) with all Hemoglobin A1c results using the equation derived from a study of 507 normal and diabetic adults. Minority populations were underrepresented and children were not included. (Diabetes Care 31:5981-2956, 2008). The eAG is not equivalent to a fasting glucose. Testing performed by: [address] [address] Blood 10/17/2024 9:17 AM CDT 10/17/2024 10:03 AM CDT us Kary Joiner MD LAB BLOOD ORDERABLES Final R esult [facility] [address] [facility] Department [place] [address] * Lipid panel (10/17/2024 9:17 AM CDT) [...] last revised on 2017. Testing performed by: [address] [address] Triglycerides 112 <=149 mg/dL [facility] Comment: Interpretive [...] last revised on 2017. Testing performed by: [address] [address] HDL 47 >=40 mg/dL [facility] Comment: Interpretive [...] last revised on 2017. Testing performed by: [facility], [address] [place] [address]., [address] LDL, calculated 64 <=129 mg/dL [facility] NOLAND [...] last revised on 2023. Testing performed by: [facility], [address] [place] [address]., [address] Non-HDL Cholesterol 84 mg/dL [facility] Comment: Interpretive [...] last revised on 2017. Testing performed by: [address] [address] Chol/HDL ratio 3 [facility] Comment:Testing performed by : [address] [address] Blood 10/17/2024 9:17 AM CDT 10/17/2024 10:03 AM CDT us Kary Joiner MD LAB BLOOD ORDERABLES Final R esult [facility] [address] [facility] Department [place] [address] * Comprehensive metabolic panel (10/17/2024 9:17 AM CDT) Sodium 139 135 - 145 mmol/L Comment:Testing performed by : [address] [address] Potassium, pl 4.9 3.3 - 4.9 mmol/L [facility] Comment:Testing performed by : [address] [address] Chloride 104 97 - 110 mmol/L [facility] Comment:Testing performed by : [address] [address] CO2 22 22 - 32 mmol/L [facility] Comment:Testing performed by : [address] [address] Anion gap 13 2 - 15 mmol/L [facility] Comment:Testing performed by : [address] [address] BUN 20 6 - 25 mg/dL [facility] Comment:Testing performed by : [address] [address] Creatinine 1.12 0.80 - 1.30 mg/dL [facility] Comment:Testing performed by : [address] [address] Glucose 112 70 - 199 mg/dL [facility] [...] was last revised 2022. Testing performed by: [address] [address] Calcium 9.8 8.5 - 10.3 mg/dL [facility] Comment:Testing performed by : [address] [address] Bilirubin, total 0.9 0.1 - 1.2 mg/dL [facility] Comment:Testing performed by : [address] [address] Protein, pl 7.1 6.5 - 8.5 g/dL [facility] Comment:Testing performed by : [address] [address] Albumin 4.2 3.5 - 5.0 g/dL [facility] Comment:Testing performed by : [address] [address] Alk phos 94 40 - 130 Units/L [facility] Comment:Testing performed by : [address] [address] ALT 13 7 - 55 Units/L [facility] Comment:Testing performed by : [address] [address] AST 23 10 - 50 Units/L [facility] Comment:Testing performed by : [address] [address] Blood 10/17/2024 9:17 AM CDT 10/17/2024 10:03 AM CDT us Kary Joiner MD LAB BLOOD ORDERABLES Final R esult Performing Organization Address [facility] de Phone Number [facility] [place] [address] * eGFR (09/25/2024 1:20 PM CDT) eGFR [...] was last reviewed 2021. Testing performed by: [address] [address] Blood 09/25/2024 1:20 PM CDT 09/25/2024 2:35 PM CDT us Kary Joiner MD LAB BLOOD ORDERABLES Final R esult Performing Organization Address [facility] Co de Phone Number [facility] [address] [facility] [place] [address] * Iron profile w/ IBC (09/25/2024 1:20 PM CDT) Pathologist [facility] Iron 73 50 - 150 mcg/dL Comment:Testing performed by : [address] [address] TIBC 303 250 - 400 mcg/dL [facility] Comment:Testing performed by : [address] [address] Transferrin saturation 24 20 - 50 % [facility] Comment:Testing performed by : [address] [address] Blood 09/25/2024 1:20 PM CDT 09/25/2024 2:35 PM CDT Kary Joiner MD LAB BLOOD ORDERABLES Final R esult Performing Organization Address City/[facility]/ZIP Co de Phone Number [facility] [place] [address] * (ABNORMAL) Hemoglobin A1c (09/25/2024 1:20 PM CDT) Hgb A1C 5.9(H) 4.0 - 5.6 % Comment:Testing performed by : [address] [address] Estimated Average Glucose 123 mg/dL [facility] Comment: The ADA recommends reporting an estimated Average Glucose (eAG) with all Hemoglobin A1c results using the equation derived from a study of 507 normal and diabetic adults. Minority populations were underrepresented and children were not included. (Diabetes Care 31:9496-4082, 2008). The eAG is not equivalent to a fasting glucose. Testing performed by: [address] [address] Blood 09/25/2024 1:20 PM CDT 09/25/2024 2:36 PM CDT Kary Joiner MD LAB BLOOD ORDERABLES Final R esult Performing Organization Address City/[facility]/ZIP Co de Phone Number [facility] [address] [facility] [place] [address] * Ferritin (09/25/2024 1:20 PM CDT) Pathologist [facility] Ferritin 152 30 - 400 ng/mL Comment:Testing performed by : [address] [address] Blood 09/25/2024 1:20 PM CDT 09/25/2024 2:35 PM CDT us Kary Joiner MD LAB BLOOD ORDERABLES Final R esult [facility] [address] [facility] Department [place] [address] * Comprehensive metabolic panel (09/25/2024 1:20 PM CDT) Sodium 139 135 - 145 mmol/L Comment:Testing performed by : [address] [address] Potassium, pl 4.3 3.3 - 4.9 mmol/L [facility] Comment:Testing performed by : [address] [address] Chloride 99 97 - 110 mmol/L [facility] Comment:Testing performed by : [address] [address] CO2 29 22 - 32 mmol/L [facility] Comment:Testing performed by : [address] [address] Anion gap 11 2 - 15 mmol/L [facility] Comment:Testing performed by : [address] [address] BUN 19 6 - 25 mg/dL [facility] Comment:Testing performed by : [address] [address] Creatinine 1.00 0.80 - 1.30 mg/dL [facility] Comment:Testing performed by : [address] [address] Glucose 104 70 - 199 mg/dL [facility] [...] was last revised 2022. Testing performed by: [address] [address] Calcium 9.7 8.5 - 10.3 mg/dL [facility] Comment:Testing performed by : [address] [address] Bilirubin, total 0.9 0.1 - 1.2 mg/dL [facility] Comment:Testing performed by : [address] [address] Protein, pl 7.5 6.5 - 8.5 g/dL [facility] Comment:Testing performed by : [address] [address] Albumin 4.6 3.5 - 5.0 g/dL [facility] Comment:Testing performed by : [address] [address] Alk phos 114 40 - 130 Units/L [facility] Comment:Testing performed by : [address] [address] ALT 13 7 - 55 Units/L [facility] Comment:Testing performed by : [address] [address] AST 21 10 - 50 Units/L [facility] Comment:Testing performed by : [address] [address] Blood 09/25/2024 1:20 PM CDT 09/25/2024 2:35 PM CDT us Kary Joiner MD LAB BLOOD ORDERABLES Final R esult [facility] [address] [facility] Department [place] [address] from Last 3 Months Insurance MEDICARE FOR LIFE MEDICARE FOR LIFE [facility] MEDICARE Advance Directives For more information, please contact: [phone] Documents on File Type Date Recorded Patient Supervisor Photostat Expl anation ADVANCE DIRECTIVE 07/19/2020 11:13 AM Mitul r of Recreational Leader-Medical * Full Code (Latest Code Status on File) Date Activated Date Inactivated Comments 01/06/2022 11:12 AM 01/06/2022 4:32 PM * Full Code Date Activated Date Inactivated Comments 11/25/2021 7:44 AM 11/25/2021 2:15 PM * Full Code Date Activated Date Inactivated Comments 07/21/2020 2:11 PM 07/24/2020 4:04 PM Care Teams Agricultural And Forestry Supervisor Relationship Specialty Start Date End Date Kary Joiner MD [address] [place] [address] [phone] PCP - General Internal Medicine 12/12/17 Rusty Saucedo OD [address] [place] [id number] Optometry 11/10/20 Nehemias Capellan MD [address] [place] [id number] Dermatology 11/10/20 Sergio Lara MD [address] [place] [address] Surgeon Urology 01/13/21 Didi Woo MD [address] [place] [address] [place] [address] Consulting Physician Gastroenterology 01/11/22 Mk Moore DO [address] [address] Consulting Physician Orthopedic Surgery 02/08/22 Kelsey Sun NP [address] [place] [address] Nurse Practitioner Urology 03/10/22 Ambrocio Bledsoe MD [address] [address] Consulting Physician Cardiology 08/14/22 Hola Davenport MD [address] [facility] [address] [place] [address] Radiation Oncologist Radiation Oncology 08/24/22 Roger Sibley PA [address] [place] [address] Physician Food Processing Plant Manager Dermatology 12/21/23
--- OUTSIDE RECORDS SUMMARY | 2024-12-16 15:09 | XMS_ITS | Clinical Summary ---
Author Organization [facility] Address [address] [place] [address] Care Team Providers Care Digital Advertising Specialist Name Role Phone Rozina Joiner MD Primary Care Provider [phone] Allergies No known active allergies Medications atorvastatin 20 MG tablet Take 20 mg by mouth daily. 07/14/2021 Active calcium carb-cholecalcif kassandra 600-400 MG-UNIT Tab tablet 10/07/2020 Active citalopram 20 MG tablet Take 1 tablet by mouth daily. 12/14/2020 Active clopidogrel 75 MG tablet Take 1 tablet by mouth daily. 10/18/2020 Active Fish Oil-Cholecalcife rol (FISH OIL + D3) 8507-3688 MG-UNIT Cap Active levothyroxine 100 MCG tablet [...] CDT Gender Identity Male 05/25/2021 10:07 AM RADIATION MONITOR Sexual Orientation Straight 05/25/2021 10 :07 AM RADIATION MONITOR Last Filed Vital Signs Vital Sign Reading [...] age to complete this topic Insurance MEDICARE [facility] Care Teams Digital Advertising Specialist Relationship Specialty Start Date End Date Rozina Joiner MD [address] [facility] [place] [address] PCP - General INTERNAL MEDICINE 08/21/21
--- OUTSIDE RECORDS SUMMARY | 2024-12-16 15:09 | XMS_ITS ---
Author Organization [facility] Address [address] [place] [address] Care Team Providers Care Wardrobe Technician Name Role Phone Kary Joiner MD Primary Care Provider + [phone] Rusty Saucedo OD Unavailable [phone] Nehemias Capellan MD Unavailable [phone] Sergio Lara MD Unavailable Didi Woo MD Unavailable Mk Moore DO Unavailable [phone] Kelsey Sun NP Unavailable [phone] Ambrocio Bledsoe MD Unavailable [phone] Hola Davenport MD Unavailable Roger Sibley Unavailable + [phone] Active Problems Problem Noted Date Diagnosed Date Balance problem 03/21/2023 Assessment & Plan (03/21/2023 10:32 AM PICTURE FRAME MAKER): New and worsening MRI brain recommended rule out cerebellar disease Memory changes 03/21/2023 Assessment & Plan (03/21/2023 10:34 AM PICTURE FRAME MAKER): New Forgetting names but recovers Balance issues [...] 03/23/2022 Assessment & Plan (03/23/2022 3:42 PM PICTURE FRAME MAKER): +Gaston test Use tylenol/ibuprofen as needed as [...] (01/16/2022): Added automatically from request for surgery [id number] 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 Assessment & Plan (03/21/2023 7:54 AM PICTURE FRAME MAKER): Flexible sigmoidoscopy December of 2021 Dr. Didi [...] (12/14/2020): Added automatically from request for surgery [id number] History of basal cell carcinoma (BCC) of [...] 03/25/2020 Assessment & Plan (03/25/2020 10:54 AM PICTURE FRAME MAKER): We will check a vein suplex of the RUE to rule out clot Arterial flow is good If not a DVT then possible superficial or other investigation needed such as CT chest/shoulder with potential lymphadenopathy being the cause of this swelling Medicare annual wellness visit, subsequent 10/22 Assessment & Plan (03/26/2024 10:27 AM PICTURE FRAME MAKER): Reviewed previous labs and diagnostic test results. 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 10/27/2018 Overview (11/10/2020): Open heart [place] [address] Pearl Assessment & Plan (11/10/2020 3:33 PM CDT): Stable Cont on plavix and statin therapy Risk for falls 07/23/2018 Overview (02/08/2022): 11/2021 Fell coming out of a pizza parlor, large step down at the exit, strained r wrist and scraped r knee, no major ijuries Assessment & Plan (03/26/2024 10:26 AM PICTURE FRAME MAKER): Patient at risk for falls due to [...] forearm 03/15/2017 Overview (12/21/2023): excision left forearm, Logistics Supply Officer in [place] Positive biopsy squamous cell CA right temporal, [...] AM BY KARY JOINER MD Since had [place], taking celexa therapy, on maintenance Assessment & [...] A1c Assessment & Plan (03/21/2023 7:52 AM PICTURE FRAME MAKER): Mild elevations in blood sugar. Avoid sugar [...] hoarseness Assessment & Plan (03/21/2023 7:52 AM PICTURE FRAME MAKER): Cont current rx medication dose is euthyroid [...] Overview (07/23/2018): Also seeing dr Benjamin Brown events solutions consultant in [place] when estrada there. Sees Dr Bledsoe at [facility]. Assessment & Plan (10/16/2024 [...] (01/16/2022): Added automatically from request for surgery [id number] 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 08/15/19 23 Overview (11/23/2021): [...] (04/16/2020): Added automatically from request for surgery [id number] Breast mass, right 02/23/2020 Assessment & Plan (02/23/2020 1:58 PM PICTURE FRAME MAKER): R breast Ultrasound Cut down on caffeine [...] CDT): Has contacted Dr. Sergio Anderson at [facility] regarding this-cannot get him until 01/05/2020-was told [...] (11/22/2017): Added automatically from request for surgery [id number] Primary osteoarthritis of right shoulder 01/23/2017 11/10/2020 Primary osteoarthritis of right knee 07/18/2016 11/10/2020 Solitary pulmonary nodule 07/22/2015 Overview (07/23/2018): Pulmonary monitored it for 2-3 yrs was stable unchanged, benign activity Lesion of left lateral popliteal nerve 07/22/2015 11/10/2020 History of coronary artery bypass graft 07/22/2015 07/23/2018
--- OUTSIDE RECORDS SUMMARY | 2024-12-16 15:10 | XMS_ITS | Encounter Summary ---
Author Organization [facility] Facility Care Team Providers Care Inspector Returned Materials Name Role Phone Cyril Joiner MD Primary Care Provider [phone] Cyril Joiner MD Primary Care Provider [phone] Unknown, Notinfile Primary Care Provider Unavail able Cyril Joiner MD Primary Care Provider [phone] Rozina Joiner MD Primary Care Provider [phone] Jared Johnson MD, Michael G. Unavailable [phone] Rusty Saucedo OD Unavailable [phone] Nehemias Capellan MD Unavailable [phone] Sergio Anderson MD Unavailable [phone] Sergio Lara MD Unavailable Norm Capps MD Unavailable [phone] Rell Love MD Unavailable [phone] Didi Woo MD Unavailable Mk Moore DO Unavailable [phone] Kelsey Sun NP Unavailable Ambrocio Bledsoe MD Unavailable Hola Davenport MD Unavailable [phone] Roger Sibley Unavailable [phone] Encounter Details Date Type Department Care Team (Latest Contact Info) Description 07/27/2016 Orders Only [facility] CLINCONV Provider, MD Darin [address] [place] [address] Social History Tobacco Use Types Packs/Day Years Used Date Smoking Tobacco: Never Assessed Sex and Gender Information Value Date Recorded Sex Assigned at Not on file Legal Sex Male 11:32 PM AGENT BASED MODELER Gender Identity Male 07/25/2023 10:55 AM CDT [...] COVID: Suspected 02/14/2022 02/14/2022 02/14/2022 5:29 PM AGENT BASED MODELER COVID: Suspected 07/28/2023 07/28/2023 07/28/2023 10:05 AM CDT COVID: Suspected 08/04/2024 08/04/2024 08/04/2024 10:09 AM CDT Influenza, adult 08/04/2024 08/04/2024 08/11/2024 3:06 AM CDT documented as of this encounter Care Teams Inspector Returned Materials Relationship Specialty Start Date End Date Cyril Joiner MD [address] [place] [address] PCP - General 10/09/16 10/29/16 Cyril Joiner MD [address] [place] [address] PCP - General 10/30/16 10/30/16 Unknown, Notinfile PCP - General 10/31/16 11/05/16 Cyril Joiner MD [address] [place] [address] PCP - General 11/06/16 12/11/17 Rozina Joiner MD [address] [place], [place] [address] PCP - General Internal Medicine 12/12/17 Ben Coleman Jr., MD [address] [place] [address] [id number] Consulting Physician Internal Medicine 11/17/19 2 Rusty Saucedo, MASSIMO [address] [place] [address] Optometry 11/10/20 Nehemias Capellan MD [address] [place], [place] [address] Dermatology 11/10/20 Sergio Anderson MD [address] [place], [place] [address] Referring Physician Neurosurgery 11/10/20 01/12/21 Sergio Lara MD [address] [place] [address] Surgeon Urology 01/13/21 Norm Capps MD [address] [place] [address] Radiation Oncologist Radiation Oncology 01/13/21 Rell Love MD [address] [address] Radiation Oncologist Radiation Oncology 04/14/21 Didi Woo MD [address] [place] [address] Consulting Physician Gastroenterology 01/11/22 Mk Moore DO [address] [address] Consulting Physician Orthopedic Surgery 02/08/22 Kelsey Sun NP [address] [place] [address] Nurse Practitioner Urology 03/10/22 Ambrocio Bledsoe MD [address] [facility] [address] [place] [address] Consulting Physician Cardiology 08/14/22 Hola Davenport MD [address] [facility] [address] [place] [address] Radiation Oncologist Radiation Oncology 08/24/22 Roger Sibley PA [address] [place] [address] Physician Manager Pmo Dermatology 12/21/23 documented as of this encounter
--- OUTSIDE RECORDS SUMMARY | 2024-12-16 15:10 | XMS_ITS | Encounter Summary ---
Author Organization [facility] Address [address] [place] [address] Phone Care Team Providers Care Pony Ride Operator Name Role Phone Rozina Joiner MD Primary Care Provider [phone] Jared Johnson MD, Ben Almanzar Unavailable [phone] Rusty Saucedo OD Unavailable [phone] Nehemias Capellan MD Unavailable Sergio Anderson MD Unavailable [phone] Sergio Lara MD Unavailable Norm Capps MD Unavailable [phone] Rell Love MD Unavailable [phone] Didi Woo MD Unavailable Mk Moore DO Unavailable [phone] Kelsey Sun NP Unavailable Ambrocio Bledsoe MD Unavailable [phone] Hola Davenport MD Unavailable Roger Sibley Unavailable [phone] Encounter Details Date Type Department Care Team (Late st Contact Info) Description 06/12/2019 Telephone [facility] Medicine Scheduling [address] [place] [address] Corina Yang Social History Tobacco [...] on file Legal Sex Male 11:32 PM CUSTOMER RESOURCE SPECIALIST Gender Identity Male 07/25/2023 10:55 AM CDT Sexual Orientation Straight 10/22/2018 6: 47 AM CDT documented as of this encounter Plan of Treatment Not on file documented as of this encounter Visit Diagnoses Not on filedocumented in this encounter Additional Health Concerns Infection Onset Date Last Indicated Resolved Time COVID: Suspected 02/14/2022 02/14/2022 02/14/2022 5:29 PM CUSTOMER RESOURCE SPECIALIST COVID: Suspected 07/28/2023 07/28/2023 07/28/2023 10:05 AM CDT COVID: Suspected 08/04/2024 08/04/2024 08/04/2024 10:09 AM CDT Influenza, adult 08/04/2024 08/04/2024 08/11/2024 3:06 AM CDT documented as of this encounter Care Teams Pony Ride Operator Relationship Specialty Start Date End Date Rozina Joiner MD [address] [place] [address] PCP - General Internal Medicine 12/12/17 Ben Coleman Jr., MD [address] [place] [address] Consulting Physician Internal Medicine 11/17/19 2 Rusty Saucedo OD [address] [place] [address] Optometry 11/10/20 Nehemias Capellan MD [address] [place] [address] Dermatology 11/10/20 Sergio Anderson MD [address] [place] [address] Referring Physician Neurosurgery 11/10/20 01/12/21 Sergio Lara MD [address] [place] [address] Surgeon Urology 01/13/21 Norm Capps MD [address] [place] [address] Radiation Oncologist Radiation Oncology 01/13/21 Rell Love MD [address] [place] [address] Radiation Oncologist Radiation Oncology 04/14/21 Didi Woo MD [address] [place] [address] Consulting Physician Gastroenterology 01/11/22 Mk Moore DO [address] [address] Consulting Physician Orthopedic Surgery 02/08/22 Kelsey Sun NP [address] [place] [address] Nurse Practitioner Urology 03/10/22 Ambrocio Bledsoe MD [address] [facility] [address] [place] [address] Consulting Physician Cardiology 08/14/22 Hola Davenport MD [address] [facility] [address] [place] [address] Radiation Oncologist Radiation Oncology 08/24/22 Roger Sibley PA [facility] [place] [address] Physician Supervisor Customer Complaint Service Dermatology 12/21/23 documented as of this encounter
--- OUTSIDE RECORDS SUMMARY | 2024-12-16 15:10 | XMS_ITS | Encounter Summary ---
Author Organization [facility] Address [address] [place] [address] Phone Care Team Providers Care Vp Name Role Phone Cyril Joiner MD Primary Care Provider [phone] Cyril Joiner MD Primary Care Provider [phone] Unknown, Notinfile Primary Care Provider Unavail able Cyril Joiner MD Primary Care Provider [phone] Rozina Joiner MD Primary Care Provider Jared Johnson MD, Ben Almanzar Unavailable Rusty Saucedo OD Unavailable Nehemias Capellan MD Unavailable Sergio Anderson MD Unavailable [phone] Sergio Lara MD Unavailable Norm Capps MD Unavailable [phone] Rell Love MD Unavailable [phone] Didi Woo MD Unavailable [phone] Mk Moore DO Unavailable [phone] Kelsey Sun NP Unavailable Ambrocio Bledsoe MD Unavailable [phone] Hola Davenport MD Unavailable [phone] Roegr Sibley Unavailable [phone] Encounter Details Date Type Department Care Team (Latest Contact Info) Description 10/11/2016 Orders Only [facility] CONVERSION Scanning, Provider Social History Tobacco Use Types Packs/Day Years Used Date Smoking Tobacco: Former Sex and Gender Information Value Date Recorded Sex Assigned at Not on file Legal Sex Male 11:32 PM 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 DEVELOPER Gender Identity Male 07/25/2023 10:55 AM CDT [...] COVID: Suspected 02/14/2022 02/14/2022 02/14/2022 5:29 PM ORACLE ADF DEVELOPER COVID: Suspected 07/28/2023 07/28/2023 07/28/2023 10:05 AM CDT COVID: Suspected 08/04/2024 08/04/2024 08/04/2024 10:09 AM CDT Influenza, adult 08/04/2024 08/04/2024 08/11/2024 3:06 AM CDT documented as of this encounter Care Teams Vp Relationship Specialty Start Date End Date Cyril Joiner MD [address] [facility] [address] PCP - General 10/09/16 10/29/16 Cyril Joiner MD [address] [facility] [place] [address] PCP - General 10/30/16 10/30/16 Unknown, Notinfile PCP - General 10/31/16 11/05/16 Cyril Joiner MD [address] [facility] [place] [address] PCP - General 11/06/16 12/11/17 Rozina Joiner MD [address] [place], [place] [address] PCP - General Internal Medicine 12/12/17 Ben Coleman Jr., MD [address] [place], [place] [address] Consulting Physician Internal Medicine 11/17/19 2 Rusty Saucedo, [address] [place] [address] Optometry 11/10/20 Nehemias Capellan MD [address] [place], [place] [address] Dermatology 11/10/20 Sergio Anderson MD [address] [place], [place] [address] Referring Physician Neurosurgery 11/10/20 01/12/21 Sergio Lara MD [address] [place] [address] Surgeon Urology 01/13/21 Norm Capps MD [address] [place], [place] [address] Radiation Oncologist Radiation Oncology 01/13/21 Rell Love MD [address] [address] Radiation Oncologist Radiation Oncology 04/14/21 Didi Woo MD [address] [place] [address] Consulting Physician Gastroenterology 01/11/22 Mk Moore DO [address] [address] Consulting Physician Orthopedic Surgery 02/08/22 Kelsey Sun NP [address] [place] [address] Nurse Practitioner Urology 03/10/22 Ambrocio Bledsoe MD [address] [facility] [address] [place] [address] Consulting Physician Cardiology 08/14/22 Hola Davenport MD [address] [facility] [address] [place] [address] Radiation Oncologist Radiation Oncology 08/24/22 Roger Sibley PA [address] [place] [address] Physician Liquor Bridge Operator Helper Dermatology 12/21/23 documented as of this encounter
--- OUTSIDE RECORDS SUMMARY | 2024-12-16 15:10 | XMS_ITS | Encounter Summary ---
Author Organization [facility] Facility Care Team Providers Care Water Hydrant Installer Name Role Phone Cyril Joiner MD Primary Care Provider [phone] Cyril Joiner MD Primary Care Provider [phone] Unknown, Notinfile Primary Care Provider Unavail able Cyril Joiner MD Primary Care Provider [phone] Rozina Joiner MD Primary Care Provider [phone] Jared Johnson MD, Michael G. Unavailable [phone] Rusty Saucedo OD Unavailable [phone] Nehemias Capellan MD Unavailable [phone] Sergio Anderson MD Unavailable [phone] Sergio Lara MD Unavailable Norm Capps MD Unavailable [phone] Rell Love MD Unavailable [phone] Didi Woo MD Unavailable Mk Moore DO Unavailable [phone] Kelsey Sun NP Unavailable [phone] Ambrocio Bledsoe MD Unavailable Hola Davenport MD Unavailable Roger Sibley Unavailable [phone] Encounter Details Date Type Department Care Team (Latest Contact Info) Description 07/26/2015 Orders Only [facility] CLINCONV Provider, MD Darin [address] [place] [address] Social History Tobacco Use Types Packs/Day Years Used Date Smoking Tobacco: Never Assessed Sex and Gender Information Value Date Recorded Sex Assigned at Not on file Legal Sex Male 11:32 PM TREATER Gender Identity Male 07/25/2023 10:55 AM CDT [...] COVID: Suspected 02/14/2022 02/14/2022 02/14/2022 5:29 PM TREATER COVID: Suspected 07/28/2023 07/28/2023 07/28/2023 10:05 AM CDT COVID: Suspected 08/04/2024 08/04/2024 08/04/2024 10:09 AM CDT Influenza, adult 08/04/2024 08/04/2024 08/11/2024 3:06 AM CDT documented as of this encounter Care Teams Water Hydrant Installer Relationship Specialty Start Date End Date Cyril Joiner MD [address] [facility] [address] PCP - General 10/09/16 10/29/16 Cyril Joiner MD [address] [facility] [address] PCP - General 10/30/16 10/30/16 Unknown, Notinfile PCP - General 10/31/16 11/05/16 Cyril Joiner MD [address] [facility] [place] [address] PCP - General 11/06/16 12/11/17 Rozina Joiner MD [address] [place], [place] [address] PCP - General Internal Medicine 12/12/17 Ben Coleman Jr., MD [address] [place] [address] Consulting Physician Internal Medicine 11/17/19 2 Rusty Saucedo, MASSIMO [address] [place] [address] Optometry 11/10/20 Nehemias Capellan MD [address] [place], [place] [address] Dermatology 11/10/20 Sergio Anderson MD [address] [place], [place] [address] Referring Physician Neurosurgery 11/10/20 01/12/21 Sergio Lara MD [address] [place] [address] Surgeon Urology 01/13/21 Norm Capps MD [address] [place] [address] Radiation Oncologist Radiation Oncology 01/13/21 Rell Love MD [address] [address] Radiation Oncologist Radiation Oncology 04/14/21 Didi Woo MD [address] [place] [address] Consulting Physician Gastroenterology 01/11/22 Mk Moore DO [address] [address] Consulting Physician Orthopedic Surgery 02/08/22 Kelsey Sun NP [address] [place] [address] Nurse Practitioner Urology 03/10/22 Ambrocio Bledsoe MD [address] [facility] [address] [place] [address] Consulting Physician Cardiology 08/14/22 Hola Davenport MD [address] [facility] [address] [place] [address] Radiation Oncologist Radiation Oncology 08/24/22 Roger Sibley PA [address] [place] [address] Physician Health Promotion Officer Dermatology 12/21/23 documented as of this encounter
--- OUTSIDE RECORDS SUMMARY | 2024-12-16 15:10 | XMS_ITS | Encounter Summary ---
Author Organization [facility] Address [address] [place] [address] Phone Care Team Providers Care Computerized Mill Mill Recorder Name Role Phone Rozina Joiner MD Primary Care Provider + [phone] Rusty Saucedo OD Unavailable [phone] Nehemias Capellan MD Unavailable [phone] Sergio Lara MD Unavailable Rell Love MD Unavailable + [phone] Didi Woo MD Unavailable [phone] Mk Moore DO Unavailable [phone] Kelsey Sun NP Unavailable Ambrocio Bledsoe MD Unavailable [phone] Hola Davenport MD Unavailable [phone] Roger Sibley Unavailable + [phone] Encounter Details Date Type Department Care Team [...] on file Legal Sex Male 11:32 PM 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 Gender Identity Male 07/25/2023 10:55 AM CDT [...] Plan Chronic Care Management Worsening( 10:55 AM 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) No Pily Hardy, RN Note: Problem: Chronic [...] documented as of this encounter Care Teams Computerized Mill Mill Recorder Relationship Specialty Start Date End Date Rozina Joiner MD [address] [place] [address] PCP - General Internal Medicine 12/12/17 Rusty Saucedo OD [address] [place] [address] Optometry 11/10/20 Nehemias Capellan MD [address] [place] [address] Dermatology 11/10/20 Sergio Lara MD [address] [place] [address] Surgeon Urology 01/13/21 Rell Love MD [address] [place] [address] Radiation Oncologist Radiation Oncology 04/14/21 Didi Woo MD [address] [place] [address] Consulting Physician Gastroenterology 01/11/22 Mk Moore DO [address] [facility] [address] [address] Consulting Physician Orthopedic Surgery 02/08/22 Kelsey Sun NP [address] [place] [address] Nurse Practitioner Urology 03/10/22 Ambrocio Bledsoe MD [address] [facility] [address] [place] [address] Consulting Physician Cardiology 08/14/22 Hola Davenport MD [address] [facility] [address] [place] [address] Radiation Oncologist Radiation Oncology 08/24/22 Roger Sibley PA [facility] [place] [address] Physician Audio Operator Dermatology 12/21/23 documented as of this encounter
--- OUTSIDE RECORDS SUMMARY | 2024-12-16 15:10 | XMS_ITS | Encounter Summary ---
Author Organization [facility] Healthcare Address [address] [place] [address] Care Team Providers Care Supervisor [employer] Former Name Role Phone Rozina Joiner MD Primary Care Provider + [phone] Jared Johnson MD, Michael G. Unavailable [phone] Rusty Saucedo OD Unavailable [phone] Nehemias Capellan MD Unavailable [phone] Sergio Anderson MD Unavailable [phone] Sergio Lara MD Unavailable Norm Capps MD Unavailable Rell Love MD Unavailable [phone] Didi Woo MD Unavailable [phone] Mk Moore DO Unavailable [phone] Kelsey Sun NP Unavailable Ambrocio Bledsoe MD Unavailable Hola Davenport MD Unavailable [phone] Roger Sibley Unavailable + [phone] Encounter Details Date Type Department Care Team (Late st Contact Info) Description 12/08/2020 Telephone [facility] Radiology [address] [place] [address] Vale Adhikari, STEEL RIGGER [address] [facility] [address] [place] [address] Social History Tobacco Use Types Packs/Day Years [...] on file Legal Sex Male 11:32 PM PRIVATE PILOT Gender Identity Male 07/25/2023 10:55 AM CDT Sexual Orientation Straight 10/22/2018 6: 47 AM CDT documented as of this encounter Plan of Treatment Not on file documented as of this encounter Goals Goal Patient Goal Type Associated Problems Recent Progress Patient-Stated? Author CCM Chronic Pain Care Plan Chronic Care Management Worsening( 10:55 AM PRIVATE PILOT) Pily Vann, RN Note: Problem: Chronic Pain [...] COVID: Suspected 02/14/2022 02/14/2022 02/14/2022 5:29 PM PRIVATE PILOT COVID: Suspected 07/28/2023 07/28/2023 07/28/2023 10:05 AM CDT COVID: Suspected 08/04/2024 08/04/2024 08/04/2024 10:09 AM CDT Influenza, adult 08/04/2024 08/04/2024 08/11/2024 3:06 AM CDT documented as of this encounter Care Teams Supervisor [employer] Former Relationship Specialty Start Date End Date Rozina Joiner MD [address] [place] [id number] PCP - General Internal Medicine 12/12/17 Ben Coleman Jr., MD [address] [place] [id number] Consulting Physician Internal Medicine 11/17/19 2 Rusty Saucedo OD [address] [place] [address] Optometry 11/10/20 Nehemias Capellan MD [address] [place] [address] Dermatology 11/10/20 Sergio Anderson MD [address] [place] [address] Referring Physician Neurosurgery 11/10/20 01/12/21 Sergio Lara MD [address] [place] [address] Surgeon Urology 01/13/21 Norm Capps MD [address] [place] [address] Radiation Oncologist Radiation Oncology 01/13/21 Rell Love MD [address] [place] [address] Radiation Oncologist Radiation Oncology 04/14/21 Didi Woo MD [address] [place] [address] Consulting Physician Gastroenterology 01/11/22 Mk Moore DO [address] [facility] [address] [address] Consulting Physician Orthopedic Surgery 02/08/22 Kelsey Sun NP [address] [place] [address] Nurse Practitioner Urology 03/10/22 Ambrocio Bledsoe MD [address] [facility] [address] [place] [address] Consulting Physician Cardiology 08/14/22 Hola Davenport MD [address] [facility] [address] [place] [address] Radiation Oncologist Radiation Oncology 08/24/22 Roger Sibley PA [address] [place] [address] Physician Calciminer Dermatology 12/21/23 documented as of this encounter
--- OUTSIDE RECORDS SUMMARY | 2024-12-16 15:10 | XMS_ITS | Clinical Summary ---
Author Organization [facility] Address [address] [place] [address] Care Team Providers Care Frozen Food Selector Name Role Phone [address] Primary Care Prov ider Source Comments [facility],non-owned Affiliates and Associated Physician Practices is amultiple site organization consisting of ambulatory clinics and hospital sitesin [place], [place], [place] and [place]. This disclosure is being madepursuant to the Care Everywhere program and may not contain all information available regarding this patient. Last updated 17.[facility] Allergies No known active allergies Medications * [...] Fish Oil-Cholecalcif kassandra (FISH OIL + D3) [id number] MG-UNIT CAPS Active Family History Medical History [...] Sex Assigned at Male 05/25/2021 7:03 AM [employer] Legal Sex Male 11:05 AM CDT Gender Identity Male 05/25/2021 7:03 AM [employer] Sexual Orientation Straight 05/25/2021 7: 03 AM [employer] Last Filed Vital Signs Vital Sign Reading [...] patient's age to complete [place] [address] MEDICARE [facility] MEDICARE Care Teams Frozen Food Selector Relationship Specialty Start Date End Date [facility] [address] [facility], [place] [address] PCP - General Family Medicine 01/19/17
--- OUTSIDE RECORDS SUMMARY | 2024-12-16 15:10 | XMS_ITS | Encounter Summary ---
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 Name Role Phone Rozina Joiner MD Primary Care Provider + [phone] Jared Johnson MD, Ben Almanzar Unavailable [phone] Rusty Saucedo OD Unavailable [phone] Nehemias Capellan MD Unavailable [phone] Sergio Lara MD Unavailable Norm Capps MD Unavailable [phone] Rell Love MD Unavailable [phone] Didi Woo MD Unavailable Mk Moore DO Unavailable [phone] Kelsey Sun NP Unavailable Ambrocio Bledsoe MD Unavailable Hola Davenport MD Unavailable Roger Sibley Unavailable + [phone] Encounter Details Date Type Department Care Team [...] on file Legal 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 Gender Identity Male 07/25/2023 10:55 AM CDT [...] Plan Chronic Care Management Worsening( 10:55 AM SERVICES DELIVERY DRIVER) No Pily Hardy, RN Note: Problem: Chronic [...] COVID: Suspected 02/14/2022 02/14/2022 02/14/2022 5:29 PM SERVICES DELIVERY DRIVER COVID: Suspected 07/28/2023 07/28/2023 07/28/2023 10:05 AM CDT COVID: Suspected 08/04/2024 08/04/2024 08/04/2024 10:09 AM CDT Influenza, adult 08/04/2024 08/04/2024 08/11/2024 3:06 AM CDT documented as of this encounter Care Teams Wheel Mill Operator Relationship Specialty Start Date End Date Rozina Joiner MD [address] [place] [id number] PCP - General Internal Medicine 12/12/17 Ben Coleman Jr., MD [address] [place] [address] [phone] Consulting Physician Internal Medicine 11/17/19 2 Rusty Saucedo OD [address] [place] [address] [id number] Optometry 11/10/20 Nehemias Capellan MD [address] [place] [address] [id number] Dermatology 11/10/20 Sergio Lara MD [address] [place] [address] 326649 Surgeon Urology 01/13/21 Norm Capps MD [address] [place] [address] Radiation Oncologist Radiation Oncology 01/13/21 Rell Love MD [address] [place] [address] [phone] Radiation Oncologist Radiation Oncology 04/14/21 Didi Woo MD [address] [place] [address] Consulting Physician Gastroenterology 01/11/22 Mk Moore DO [address] [address] Consulting Physician Orthopedic Surgery 02/08/22 Kelsey Sun NP [address] [place] [address] Nurse Practitioner Urology 03/10/22 Ambrocio Bledsoe MD [address] [address] Consulting Physician Cardiology 08/14/22 Hola Davenport MD [address] [facility] [address] [place] [address] Radiation Oncologist Radiation Oncology 08/24/22 Roger Sibley PA [address] [place] [address] Physician [employer] Superintendent Dermatology 12/21/23 documented as of this encounter
== END 2024-12-16 14:24 | disposition home or self-care (01) ==
PROVIDERS: Emergency Medicine; Emergency Provider Student in an Organized Health Care Education/Training Program
DX: R55 Syncope and collapse (principal); I25.10 Atherosclerotic heart disease of native coronary artery without angina pectoris; Z95.1 Presence of aortocoronary bypass graft; Z85.46 Personal history of malignant neoplasm of prostate; Z92.3 Personal history of irradiation
CPT/HCPCS: 36415; 70450; 71046; 80053; 82948; 85025; 93005; 99284; A9270